=== PATIENT | male | born 1980 | race Caucasian/White ===

== ENCOUNTER → 2020-03-08 10:05 | Outpatient (BNVA) | payer OTHER, SELFPAY | PROVIDERS: Visit Provider Urology | DX: Z76.89 Persons encountering health services in other specified circumstances (principal) ==

== ENCOUNTER → 2021-06-07 08:55 | Outpatient (BNVA) | payer OTHER, SELFPAY | PROVIDERS: Visit Provider Urology ==

== ENCOUNTER 2023-03-03 08:53 | Outpatient (AMB) | payer OTHER, SELFPAY ==
--- NOTE | 2023-03-03 09:12 | MHC.OFFVIS ---
Intake Intake Visit Reasons: 6m/labs(set) Intake Note: Patient is Present for Follow Up LABS Urology Medication: Testosterone Antibiotic Allergies:None Blood Thinners: None [facility]acy[facility] Allergies No Known Allergies Allergy (Verified 03/03/23 09:17) Medication List - Last Reconciled 03/03/23 by Waldo Lance MD ciprofloxacin-dexamethasone 0.3-0.1 % 4 drps otic (ears) BID infliximab 0 mg IV lisinopril 5 mg PO DAILY losartan 25 mg PO DAILY needle (disp) 18 G weekly syringe with needle, safety (BD Integra Syringe) weekly testosterone cypionate 100 mg (0.5 mL) IM QWEEK 28 days HPI HPI Comments History of Present Illness Details Judson is a very pleasant male. He is a patient of Dr. Villanueva. 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 Labs - 05/21 T 406, 04/22 930 48 1.6 Continue to follow every 6 months [facility] Surgical History History of hernia repair Review of Systems Const Denies chills and Denies fever(s) Card Reports no additional complaints and Denies syncope Resp Denies cough GI Denies abdominal pain and Denies heartburn Reports as per HPI and Denies change in libido Neuro Denies syncope Psych Denies change in libido Endo Denies change in libido Physical Exam Const General: cooperative, healthy appearing, comfortable and no acute distress Orientation/consciousness: patient oriented x3 HEENT Face and sinus: Yes normal facial exam Mouth: moist mucous membranes Neck Neck: Yes normal visual inspection, Yes full ROM and Yes trachea midline Chest Chest palpation & inspection: normal inspection of the chest Resp Effort & Inspection: normal respiratory effort, able to speak in complete sentences and no respiratory distress GI Inspection: Yes normal to inspection Back/Spine/Pelvis Cervical Spine: normal cervical lordosis Thoracic/Lumbar Spine: thoracic and lumbar spine normal to inspection Skin General skin exam: no rashes or lesions noted Neuro General: patient oriented x3, gait normal, tone normal and moves all extremities Extrem General: Yes normal to inspection and Yes capillary refill normal Assessment & Plan Assessment & Plan (1) Hypogonadism male: Code(s): E29.1 - Testicular hypofunction Plan Six month follow-up Medications: Refilled testosterone cypionate 100 mg (0.5 mL) IM QWEEK 2 mL 5RF 28 days E29.1 - Testicular hypofunction needle (disp) 18 G weekly 50 ea 0RF E29.1 - Testicular hypofunction syringe with needle, safety (BD Integra Syringe) weekly 100 ea 0RF Patient Instructions: Imaging studies, laboratory and physical exam results were discussed and reviewed in detail. No major barriers to patient understanding were identified. An opportunity to ask questions regarding the treatment plan was provided. All questions were answered. The patient expressed understanding and agreement with the above treatment plan. The patient is aware they should contact our office by phone for worsening of their current condition or the appearance of new urologic symptoms. Compliance is encouraged with any medications and followup testing that is ordered. It is a privilege to participate in the urologic care of your patient. If you have any questions or concerns regarding treatment for the above conditions, or other urologic issues, please do not hesitate to contact me. The office telephone contact is [phone]. This note is constructed using voice recognition software. While every effort has been made to ensure accuracy mica laminating machine feeder errors may have been included. Yours sincerely, Dr Waldo Lance MD, [facility] - Urology Providers of Expert, Compassionate Care for the Genitourinary System Coding Level of Care Code Est Pt Level 4 (57271) Diagnoses Hypogonadism male E29.1
== END 2023-03-03 10:09 | disposition home or self-care (01) ==
PROVIDERS: Visit Provider Urology
DX: E29.1 Testicular hypofunction (principal)
CPT/HCPCS: 99213

== ENCOUNTER → 2023-03-03 08:53 | Outpatient (BNVA) | payer OTHER, SELFPAY | PROVIDERS: Visit Provider Urology ==

== ENCOUNTER 2023-09-03 11:49 | Outpatient (AMB) | payer OTHER, SELFPAY ==
--- NOTE | 2023-09-03 11:50 | A.OFFVIS_ITS ---
Intake Intake Visit Reasons: 6m/labs(set)Vm to confirm Intake Note: Patient presents today for a telehealth follow up on: labs Meds- Testosterone cypionate Allergies to Antibiotic- No Known Allergies Blood Thinner- None Torch Operator Required: No Allergies No Known Allergies Allergy (Verified 09/03/23 11:52) HPI HPI Comments History of Present Illness Details Judson is a very pleasant male. He is a patient of Dr. Arevalo. 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 Labs - 05/21 T 406, 04/22 930 48 1.6, 08/22 58 0 1.4 Continue to follow every 6 months [facility] Surgical History History of hernia repair Review of Systems Const All systems reviewed & are unremarkable except as noted in HPI and below Reports no additional complaints Resp Reports no additional complaints GI Reports no additional complaints Reports as per HPI Musc Reports no additional complaints Physical Exam Telemedicine evaluation Appropriate responses Regular breathing rate and rhythm HEENT Head: Yes normal to inspection Ears: hearing grossly normal bilaterally Eyes General: appearance normal, both eyes and all related structures Neck Neck: Yes normal visual inspection Chest Chest palpation & inspection: normal inspection of the chest Resp Effort & Inspection: normal respiratory effort and able to speak in complete sentences Assessment & Plan Assessment & Plan (1) Hypogonadism male: Code(s): E29.1 - Testicular hypofunction (2) Prostatitis: Code(s): N41.9 - Inflammatory disease of prostate, unspecified Plan Six-month follow-up labs, office Orders: Orders Prostate Specific Antigen 6 Months E29.1 - Testicular hypofunction Testosterone, Total 6 Months E29.1 - Testicular hypofunction Complete Blood Count no Diff 6 Months E29.1 - Testicular hypofunction Medications: New sulfamethoxazole-trimethoprim 800-160 mg (Bactrim DS) 1 tab PO BID 14 days 28 tabs 1RF N39.0 - Urinary tract infection, site not specified, N41.9 - Inflammatory disease of prostate, unspecified Refilled testosterone cypionate Please dispose of excess medication after single use 100 mg (0.5 mL) IM QWEEK 28 days 4 mL 5RF E29.1 - Testicular hypofunction Patient Instructions: Imaging studies, laboratory and physical exam results were discussed and reviewed in detail. No major barriers to patient understanding were identified. An opportunity to ask questions regarding the treatment plan was provided. All questions were answered. The patient expressed understanding and agreement with the above treatment plan. The patient is aware they should contact our office by phone for worsening of their current condition or the appearance of new urologic symptoms. Compliance is encouraged with any medications and followup testing that is ordered. It is a privilege to participate in the urologic care of your patient. If you have any questions or concerns regarding treatment for the above conditions, or other urologic issues, please do not hesitate to contact me. The office telephone contact is [phone]. This note is constructed using voice recognition software. While every effort has been made to ensure accuracy chief compressor station engineer errors may have been included. Yours sincerely, Dr Waldo Lance MD, [facility] - Urology Providers of Expert, Compassionate Care for the Genitourinary System Telehealth Telehealth Location of provider rendering services: practice address Location of patient: address on file Patient Identification confirmed using: Name, : Yes Telehealth method: video Patient verbally consented to treatment: Yes Patient verbally consented to billing insurance company: Yes Patient informed of any privacy concerns related to visit: Yes Coding Level of Care Code Tele Est Pt Level 3 (71665) Diagnoses Hypogonadism male E29.1 Prostatitis N41.9
== END 2023-09-03 12:42 | disposition home or self-care (01) ==
LOC: HO.HUSH 11:49
PROVIDERS: PCP Internal Medicine; Visit Provider Urology
DX: E29.1 Testicular hypofunction (principal); N41.9 Inflammatory disease of prostate, unspecified
CPT/HCPCS: 99213

== ENCOUNTER → 2023-09-03 11:49 | Outpatient (BNVA) | payer OTHER, SELFPAY | PROVIDERS: PCP Internal Medicine; Visit Provider Urology ==

== ENCOUNTER 2023-10-15 09:44 | Outpatient (REF) | payer OTHER, SELFPAY ==
--- NOTE | ~2023-10-15 | XR_ITS ---
EXAMINATION: XR ABDOMEN KUB CLINICAL INDICATION: Personal history of urinary calculi COMPARISON: None available. TECHNIQUE: AP view of the abdomen. FINDINGS: The bowel gas pattern is normal with no evidence of ileus or obstruction. The right kidney significantly obscured by overlying bowel gas and stool. The left kidney is partially obscured by overlying bowel gas and stool. No renal calculi are identified. There are 2 small calcifications in the left side of the pelvis which most likely represent phleboliths, less likely ureteral calculi. Surgical coils project over the pelvis. No acute osseous abnormality. XR/XR KUB IMPRESSION: 1. No obstruction. 2. No renal calculi are identified. 3. There are 2 small calcifications in the left side of the pelvis which most likely represent phleboliths, less likely ureteral calculi.
== END 2023-10-15 09:45 | disposition home or self-care (01) ==
LOC: HO.XRAY 09:44
PROVIDERS: PCP Internal Medicine; Visit Provider Urology
DX: Z87.442 Personal history of urinary calculi (principal)
CPT/HCPCS: 74018

== ENCOUNTER 2023-11-11 09:12 | Outpatient (AMB) | payer OTHER, SELFPAY ==
--- NOTE | 2023-11-11 09:29 | A.OFFVIS_ITS ---
Intake Visit Reasons: microgen prostatitis Intake Note: Patient is present for Microgen testing for Chronic Prostatitis Patient states that his symptoms are worse and no medications has helped Allergies No Known Allergies Allergy (Verified 09/03/23 11:52) HPI Comments Details: Judson is a very pleasant male. He is a patient of Dr. Arevalo. 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 Labs - 05/21 T 406, 04/22 930 48 1.6, 08/22 580 1.4 Continue to follow every 6 months [facility] Surgical History History of hernia repair Review of Systems Const Denies chills and Denies fever(s) Card Reports no additional complaints and Denies syncope Resp Denies cough GI Denies abdominal pain and Denies heartburn Reports as per HPI and Denies change in libido Neuro Denies syncope Psych Denies change in libido Endo Denies change in libido Physical Exam Const General: cooperative, healthy appearing, comfortable and no acute distress Orientation/consciousness: patient oriented x3 HEENT Face and sinus: Yes normal facial exam Mouth: moist mucous membranes Neck Neck: Yes normal visual inspection, Yes full ROM and Yes trachea midline Chest Chest palpation & inspection: normal inspection of the chest Resp Effort & Inspection: normal respiratory effort, able to speak in complete sentences and no respiratory distress GI Inspection: Yes normal to inspection Back/Spine/Pelvis Cervical Spine: normal cervical lordosis Thoracic/Lumbar Spine: thoracic and lumbar spine normal to inspection Skin General skin exam: no rashes or lesions noted Neuro General: patient oriented x3, gait normal, tone normal and moves all extremities Extrem General: Yes normal to inspection and Yes capillary refill normal Office Procedures Office Procedure Office Procedure Documentation Office Procedure Documentation: Office procedure - Rectus Insertion Injection The left inguinal ring was palpated with the left hand. Pain was elicited on medial aspect of the inguinal ring at the insertion of the rectus tendon into the symphysis pubis. Alcohol prep was applied. A 22 gauge 3.5 in Chiba needle was advanced and under tactile guidance the tip was placed through rectus tendon insertion. Negative aspiration was performed. A fan-like distribution for injection of a total of 10 cc was made. The injection consisted of 5 cc of 0.5% bupivacaine, 5 cc of 1% lidocaine, and 40 mg Kenalog. The injection was well tolerated with only transient pain. CPT 47429 ICD M77.8 Enthesopathy Assessment & Plan Assessment & Plan (1) Prostatitis: Code(s): N41.9 - Inflammatory disease of prostate, unspecified Category: Medical (2) Hypogonadism male: Code(s): E29.1 - Testicular hypofunction Category: Medical (3) Deep inguinal pain: Code(s): R10.30 - Lower abdominal pain, unspecified Category: Medical Plan keep followup Patient Instructions: Imaging studies, laboratory and physical exam results were discussed and reviewed in detail. No major barriers to patient understanding were identified. An opportunity to ask questions regarding the treatment plan was provided. All questions were answered. The patient expressed understanding and agreement with the above treatment plan. The patient is aware they should contact our office by phone for worsening of their current condition or the appearance of new urologic symptoms. Compliance is encouraged with any medications and followup testing that is ordered. It is a privilege to participate in the urologic care of your patient. If you have any questions or concerns regarding treatment for the above conditions, or other urologic issues, please do not hesitate to contact me. The office telephone contact is [phone]. This note is constructed using voice recognition software. While every effort has been made to ensure accuracy inspector open die errors may have been included. Yours sincerely, Dr Waldo Lance MD, [facility] - Urology Providers of Expert, Compassionate Care for the Genitourinary System Coding Level of Care Code Est Pt Level 3 (37828) Diagnoses Prostatitis N41.9 Hypogonadism male E29.1 Deep inguinal pain R10.30
== END 2023-11-11 10:09 | disposition home or self-care (01) ==
PROVIDERS: PCP Internal Medicine; Visit Provider Urology
DX: N41.9 Inflammatory disease of prostate, unspecified (principal); E29.1 Testicular hypofunction; R10.30 Lower abdominal pain, unspecified
CPT/HCPCS: 99213

== ENCOUNTER → 2023-11-11 09:12 | Outpatient (BNVA) | payer OTHER, SELFPAY | PROVIDERS: PCP Internal Medicine; Visit Provider Urology ==

== ENCOUNTER 2024-03-03 08:58 | Outpatient (AMB) | payer OTHER, SELFPAY ==
--- NOTE | 2024-03-03 08:56 | A.OFFVIS_ITS ---
Intake Visit Reasons: 6M Follow Up-psa/cbc/tESTO(set) Intake Note: Patient presents today for a telehealth 6M follow up/PSA/CBC/TESTO Meds- Testosterone cypionate Allergies to Antibiotic- No Known Allergies Blood Thinner- None Chiller Operator Required: No Allergies No Known Allergies Allergy (Verified 03/03/24 08:57) HPI Comments Details: Judson is a very pleasant male. He is a patient of Dr. Arevalo. 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 Labs - 05/21 T 406, 04/22 930 48 1.6, 08/22 580 1.4, 02/22 T 1500 1.6 Continue to follow every 6 months [facility] Surgical History History of hernia repair Review of Systems Const All systems reviewed & are unremarkable except as noted in HPI and below Reports no additional complaints Resp Reports no additional complaints GI Reports no additional complaints Reports as per HPI Musc Reports no additional complaints Physical Exam Telemedicine evaluation Appropriate responses Regular breathing rate and rhythm HEENT Head: Yes normal to inspection Ears: hearing grossly normal bilaterally Eyes General: appearance normal, both eyes and all related structures Neck Neck: Yes normal visual inspection Chest Chest palpation & inspection: normal inspection of the chest Resp Effort & Inspection: normal respiratory effort and able to speak in complete sentences Telehealth Telehealth Location of provider rendering services: practice address Location of patient: address on file Patient Identification confirmed using: Name, : Yes Telehealth method: voice only Patient verbally consented to treatment: Yes Patient verbally consented to billing insurance company: Yes Patient informed of any privacy concerns related to visit: Yes Assessment & Plan Assessment & Plan (1) Prostatitis: Code(s): N41.9 - Inflammatory disease of prostate, unspecified Category: Medical (2) Hypogonadism male: Code(s): E29.1 - Testicular hypofunction Category: Medical Plan Three-month follow-up Orders: Orders Testosterone, Total 3 Months E29.1 - Testicular hypofunction Medications: Refilled testosterone cypionate Please dispose of excess medication after single use 100 mg (0.5 mL) IM QWEEK 28 days 4 mL 5RF E29.1 - Testicular hypofunction Patient Instructions: Imaging studies, laboratory and physical exam results were discussed and reviewed in detail. No major barriers to patient understanding were identified. An opportunity to ask questions regarding the treatment plan was provided. All questions were answered. The patient expressed understanding and agreement with the above treatment plan. The patient is aware they should contact our office by phone for worsening of their current condition or the appearance of new urologic symptoms. Compliance is encouraged with any medications and followup testing that is ordered. It is a privilege to participate in the urologic care of your patient. If you have any questions or concerns regarding treatment for the above conditions, or other urologic issues, please do not hesitate to contact me. The office telephone contact is [phone]. This note is constructed using voice recognition software. While every effort has been made to ensure accuracy distributor cleaner errors may have been included. Yours sincerely, Dr Waldo Lance MD, [facility] - Urology Providers of Expert, Compassionate Care for the Genitourinary System Coding Level of Care Code Tele Est Pt Level 3 (98572) Diagnoses Prostatitis N41.9 Hypogonadism male E29.1
== END 2024-03-03 09:28 | disposition home or self-care (01) ==
LOC: HO.HUSH 08:58
PROVIDERS: PCP Internal Medicine; Visit Provider Urology
DX: N41.9 Inflammatory disease of prostate, unspecified (principal); E29.1 Testicular hypofunction
CPT/HCPCS: 99213

== ENCOUNTER → 2024-03-03 08:58 | Outpatient (BNVA) | payer OTHER, SELFPAY | PROVIDERS: PCP Internal Medicine; Visit Provider Urology ==

== ENCOUNTER 2024-06-09 08:49 | Outpatient (AMB) | payer OTHER, SELFPAY ==
--- NOTE | 2024-06-09 08:49 | A.OFFVIS_ITS ---
Intake Visit Reasons: 3m/Testo(set) Intake Note: Patient is present for 3M/TESTO Urology Medication:TESTOSTERONE Antibiotic Allergy:NONE Blood Thinner:NONE Inspector Watch Parts Required: No Allergies No Known Allergies Allergy (Verified 06/09/24 08:50) HPI Comments Details: Judson is a very pleasant male. He is a patient of Dr. Arevalo. 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 Labs - 05/21 T 406, 04/22 930 48 1.6, 08/22 580 1.4, 02/22 T 1500 1.6, 05/24 T 756 Continue to follow every 6 months [facility] Surgical History History of hernia repair Review of Systems Const All systems reviewed & are unremarkable except as noted in HPI and below Reports no additional complaints Resp Reports no additional complaints GI Reports no additional complaints Reports as per HPI Musc Reports no additional complaints Physical Exam Telemedicine evaluation Appropriate responses Regular breathing rate and rhythm HEENT Head: Yes normal to inspection Ears: hearing grossly normal bilaterally Eyes General: appearance normal, both eyes and all related structures Neck Neck: Yes normal visual inspection Chest Chest palpation & inspection: normal inspection of the chest Resp Effort & Inspection: normal respiratory effort and able to speak in complete sentences Telehealth Telehealth Telehealth Platform: [employer] Location of provider rendering services: practice address Location of patient: address on file Patient Identification confirmed using: Name, : Yes Telehealth method: video Patient verbally consented to treatment: Yes Patient verbally consented to billing insurance company: Yes Patient informed of any privacy concerns related to visit: Yes Minutes spent on Phone/Video with Pt.: 15 Assessment & Plan Assessment & Plan (1) Hypogonadism male: Code(s): E29.1 - Testicular hypofunction Category: Medical Plan Six-month follow-up lab work Orders: Orders Testosterone, Total 6 Months E29.1 - Testicular hypofunction Complete Blood Count no Diff 6 Months E29.1 - Testicular hypofunction Prostate Specific Antigen 6 Months E29.1 - Testicular hypofunction Medications: Refilled testosterone cypionate Please dispose of excess medication after single use 100 mg (0.5 mL) IM QWEEK 28 days 4 mL 5RF E29.1 - Testicular hypofunction Patient Instructions: Imaging studies, laboratory and physical exam results were discussed and reviewed in detail. No major barriers to patient understanding were identified. An opportunity to ask questions regarding the treatment plan was provided. All questions were answered. The patient expressed understanding and agreement with the above treatment plan. The patient is aware they should contact our office by phone for worsening of their current condition or the appearance of new urologic symptoms. Compliance is encouraged with any medications and followup testing that is ordered. It is a privilege to participate in the urologic care of your patient. If you have any questions or concerns regarding treatment for the above conditions, or other urologic issues, please do not hesitate to contact me. The office telephone contact is [phone]. This note is constructed using voice recognition software. While every effort has been made to ensure accuracy storm chaser errors may have been included. Yours sincerely, Dr Waldo Lance MD, [facility] - Urology Providers of Expert, Compassionate Care for the Genitourinary System Coding Level of Care Code Tele Est Pt Level 3 (09635) Diagnoses Hypogonadism male E29.1
--- OUTSIDE RECORDS SUMMARY | 2024-06-09 09:03 | XMS_ITS ---
Author Organization [facility] Address [address] [place] [address] Care Team Providers Care Television Picture Tube Rebuilder Name Role Phone ROBIN LEBRON Unavailable [phone] REASON FOR VISIT urgent Encounters Encounter Location Date Provider Diagnosis [facility] [address] [facility] [address] [facility] [address] [place] [address] 06/02/2024 ROBIN LEBRON PLAN OF TREATMENT Next Appt Details Provider Name:ROBIN LEBRON, 0 07/14/2024 01:00:00 PM, [address], [place], [address], Progress Notes * FRED STEWARTOB:[birth year] (43 yo M)Acc No.[id number]:06/02/2024 Patient:??YAMILETH STEWART :1980?Age:43 Y?Sex:Beena garcia Address:[facility] [place] [address] * true * Date:??
--- OUTSIDE RECORDS SUMMARY | 2024-06-09 09:03 | XMS_ITS ---
Author Organization [facility] Address [address] [place] [address] Care Team Providers Care Exhibition Specialist Name Role Phone ROBIN LEBRON Unavailable [phone] LEXII SOFIA Unavailable [phone] REASON FOR VISIT CXR Results Encounters Encounter Location Date Provider Diagnosis [facility] [address] [place] [address] 06/03/2024 LEXII SOFIA PLAN OF TREATMENT Next Appt Details Provider Name:ROBIN LEBRON, 0 07/14/2024 01:00:00 PM, [address], [place], [address], Progress Notes * FRED STEWARTOB:[birth year] (43 yo M)Acc No.[id number]:06/03/2024 Patient:??YAMILETH STEWART :1980?Age:43 Y?Sex:Beena garcia Address:[place] [address] * true * Date:??
--- OUTSIDE RECORDS SUMMARY | 2024-06-09 09:03 | XMS_ITS | Patient Health Record ---
Author Organization [facility] Address [address] [place] [address] Care Team Providers Care Sheet Combining Operator Name Role Phone ROBIN LEBRON Unavailable [phone] MANINDEROREN Sood Unavailable [phone] BISMARK LEXII Unavailable [phone] ALLERGIES No Known Allergies RESULTS Component Value Reference Range Notes Legionella pneumophila Abs.- [id number] Reviewed date:06/07/2024 08:09:31 AM Interpretation: Performing Lab:[facility], [address] [facility], Phone - [phone], Director - MDAnnelisedry Notes/Report: Legionella pneumophila Abs. Non Reactive Non Reactive This is a qualitative assay that detects total antibodies (IgG/IgM/IgA) to L. pneumophila Groups 1-6 by EIA method. This assay cannot differentiate between previous exposure/infection and current infection. Serological testing is not recommended for diagnosis. Per current recommendations, culture of lower respiratory secretions and/or the Legionella urinary antigen test should be used for diagnosis of infection with Legionella. CBC With Differential/Platel et-[id number] Reviewed date:06/07/2024 08:08:21 AM Interpretation: Performing Lab:[facility], [address] [facility], [place], Phone - [phone], Director - MDJodry Notes/Report: WBC 7.0 3.4-10.8 x10E3/uL RBC 5.16 4.14-5.80 x10E6/uL Hemoglobin 16.3 13.0-17.7 g/dL Hematocrit 48.5 37.5-51.0 % MCV 94 79-97 fL MCH 31.6 26.6-33.0 pg MCHC 33.6 31.5-35.7 g/dL RDW 12.0 11.6-15.4 % Platelets 210 150-450 x10E3/uL Neutrophils 42 Not Estab. % Lymphs 45 Not Estab. % Monocytes 10 Not Estab. % Eos 2 Not Estab. % Basos 1 Not Estab. % Immature Cells Neutrophils (Absolute) 2.9 1.4-7.0 x10E3/uL Lymphs (Absolute) 3.2 0.7-3.1 x10E3/uL Monocytes(Absolute) 0.7 0.1-0.9 x10E3/uL Eos (Absolute) 0.2 0.0-0.4 x10E3/uL Baso (Absolute) 0.1 0.0-0.2 x10E3/uL Immature Granulocytes 0 Not Estab. % Immature Grans (Abs) 0.0 0.0-0.1 x10E3/uL NRBC Hematology Comments: Mycoplasma pneu. IgG/IgM Abs -[id number] Reviewed date:06/07/2024 10:02:50 AM Interpretation: Performing Lab:[facility], [address] [place] [address], [place], Phone - [phone], Director - Josh Notes/Report: M pneumoniae IgG Abs <100 0-99 U/mL Negative: <100 Indeterminate: 100 - 320 Positive: >320 The reference interval established is intended as a baseline only. Values >100 may indicate a recent infection with Mycoplasma pneumoniae and need to be confirmed either by a positive IgM result and/or an additional specimen drawn 2-4 weeks later showing a significant increase in antibody levels. M pneumoniae IgM Abs <770 0-769 U/mL Negative <770 Clinically significant amount of M. pneumoniae antibody not detected. Low Positive 770 - 950 M. pneumoniae specific IgM presumptively detected. It is recommended that another sample be collected 1-2 weeks later to assure reactivity. Positive >950 Highly significant amount of M. pneumoniae specific IgM antibody detected. REASON FOR REFERRAL No Information MEDICATIONS Medication SIG (Take, Route, Frequency, Duration) Notes Start Date End Date Status Benzonatate 200 MG 1 capsule Orally Thr ee times a day PRN cough for 10 days Active Remicade 100 MG Intravenous for 42 Days Active guaiFENesin-Codeine 200-20 MG/10ML 10 mL as needed Orally every 6 hrs for 5 days Active Testosterone Cypionate 100 MG/ML 1 mL Intramuscular Active Doxycycline Hyclate 100 MG 1 capsule Ora lly twice a day for 10 days Active Cyclobenzaprine HCl 5 MG TAKE 1 TABLET B Y MOUTH EVERY DAY AT BEDTIME NEEDED FOR 30 DAYS for 30 Active Losartan Potassium 25 MG 1 tablet Orally Once a day for 90 days Active Albuterol Sulfate HFA 108 (90 Base) MCG/ACT 2 puff Inhalation every 6 hrs for 30 days 06/03/2024 Active Multi For Him - as directed Orally Active SOCIAL HISTORY Tobacco Use: Social History Observation Description Date Details (start date - stop date) Never Smoker NA - NA Sex Assigned At : Social History Observation Description Sex Assigned At Unknown Tobacco Use/Smoking Question Answer Notes 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 drinks tob: denies drug: denies 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 alcohol: weekly 3 drinks tob: denies drug: denies 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 alcohol: weekly 3 drinks tob: denies drug: denies 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 alcohol: weekly 3 drinks tob: denies drug: denies 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 alcohol: weekly 3 drinks tob: denies drug: denies 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 alcohol: weekly 3 drinks tob: denies drug: denies exercise: regular cardio PROBLEMS Problem Type ICD Code Onset Dates Problem Status W/U Status Risk SNOMED Code Notes Problem Pneumonia, unspecified organism (J18.9) Active confirmed Pneumonia (315786812) Problem Encounter for screening for diabetes mellitus (Z13.1) Active confirmed 926006257 Problem Annual physical exam (Z00.00) Active confirmed 771280100 Problem Hypogonadism in male (E29.1) Active confirmed 71163081 Problem Hypertension, unspecified type (I10) Active confirmed 69392771 Problem Cough (R05.9) Active confirmed Cough (15216183) Problem Ankylosing spondylitis, unspecified site of spine (M45.9) Active confirmed 4304694 Problem Cough, unspecified type (R05.9) Active confirmed 85795494 Problem Lipid screening (Z13.220) Active confirmed 192858936 VITAL SIGNS Heart Rate 69 /min 06/03/2024 Oximetry 97 % 06/03/2024 Blood pressure diastolic 84 mm Hg 06/03/2024 Height 70 in 06/03/2024 Blood pressure systolic 128 mm Hg 06/03/2024 Weight 197.2 lbs 06/03/2024 BMI 28.29 kg/m2 06/03/2024 Encounters Encounter Location Date Provider Diagnosis [facility] [address] [facility] [place] [address] 10/19/2023 ROBIN VI [facility] [address] [facility] [place] [address] 05/03/2024 ROBIN VI [facility] [address] [place] [address] 08/22/2023 OREN SHAQUILLE Sore throat J02.9 an d URI, acute J06.9 [facility] [address] [place] [address], [place] [address] 03/16/2024 ROBIN VI URI, acute J06.9 ; Postnasal drip R09.82 and Sinus congestion R09.81 [facility] [address] [address] 06/03/2024 LEXII SOFIA URI, acute J06.9 ; Postnasal drip R09.82 and Sinus congestion R09.81 [facility] [address] [place] [address] 08/19/[address] [place] [address] 03/15/2024 ROBIN VI [address] [place] [address] 03/16/[address] [place] [place] [address] 06/02/2024 ROBIN VI [facility] [address] [place] [address] 06/03/2024 LEXII SOFIA ASSESSMENTS Encounter Date Diagnosis Assessment Notes Treatment Notes Treatment Clinical Notes Section Notes 08/22/2023 Sore throat (ICD-10 - J02.9) Given duration of the illness as well as history of immunosuppression, we will treat empirically Will shy away from steroids given immunosuppression Antibiotic stewardship is the effort to measure and improve how antibiotics are prescribed by clinicians and used by patients. Improving antibiotic prescribing and use is critical to effectively treat infections via evidenced based practice, protect patients from harms caused by unnecessary antibiotic use, and combat antibiotic resistance. What is an example of antibiotic stewardship? That includes prescribing antibiotics only when they are needed (i.e., for bacterial infections, not viral ones), prescribing the appropriate antibiotics for the diagnosed infection, and prescribing the right dose and duration of antibiotic treatment, among other things. 08/22/2023 URI, acute (ICD-10 - J06.9) Given duration of the illness as well as history of immunosuppression, we will treat empirically Will shy away from steroids given immunosuppression Antibiotic stewardship is the effort to measure and improve how antibiotics are prescribed by clinicians and used by patients. Improving antibiotic prescribing and use is critical to effectively treat infections via evidenced based practice, protect patients from harms caused by unnecessary antibiotic use, and combat antibiotic resistance. What is an example of antibiotic stewardship? That includes prescribing antibiotics only when they are needed (i.e., for bacterial infections, not viral ones), prescribing the appropriate antibiotics for the diagnosed infection, and prescribing the right dose and duration of antibiotic treatment, among other things. 03/16/2024 Postnasal drip (ICD-10 - R09.82) Pleasant 43-year-old male who presents the office for an urgent care visit with a cough x 4 weeks, sinus congestion, postnasal drip, worse at night. COVID, flu, RSV pending but did test negative for COVID, flu, RSV at urgent care 3 weeks ago. Has been using Delsym, lozenges, and Flonase without improvement. In July 2023, patient states he presented similarly and was treated with doxycycline, and Tessalon Perles and he states the doxycycline worked better than the azithromycin which she has taken in the past with his previous PCP. Based on the length of symptoms, will order chest x-ray, treat with doxycycline, Tessalon Perles, and guanfacine with codeine cough syrup at night as needed. Discussed proper use and side effects of all these medications. Discussed emergency department criteria/criteria to call the office. If symptoms persist, could consider getting blood work including CBC, CMP, strep pneumonia, mycoplasma, and Legionella antibodies. Patient understanding. Due for physical, will follow-up end of April/beginning of May with fasting blood work. All quetsions answered to patients satisfaction. Patient verbalized understanding of diagnosis and treatments explained. To call sooner prior to next visit it any questions/concerns arise. Case discussed with collaborating physician Cooper Arevalo who reviewed the assessment and plan. Chart, medications, labs, vital signs reviewed. Dictation was accomplished with the use of [employer] voice recognition software, prone to medical misidentifications and grammatical errors. This is unintentional and the practitioner does try to identify and correct these, but some could still be present. Please do not hesitate to contact practitioner for clarification. 03/16/2024 URI, acute (ICD-10 - J06.9) Pleasant 43-year-old male who presents the office for an urgent care visit with a cough x 4 weeks, sinus congestion, postnasal drip, worse at night. COVID, flu, RSV pending but did test negative for COVID, flu, RSV at urgent care 3 weeks ago. Has been using Delsym, lozenges, and Flonase without improvement. In July 2023, patient states he presented similarly and was treated with doxycycline, and Tessalon Perles and he states the doxycycline worked better than the azithromycin which she has taken in the past with his previous PCP. Based on the length of symptoms, will order chest x-ray, treat with doxycycline, Tessalon Perles, and guanfacine with codeine cough syrup at night as needed. Discussed proper use and side effects of all these medications. Discussed emergency department criteria/criteria to call the office. If symptoms persist, could consider getting blood work including CBC, CMP, strep pneumonia, mycoplasma, and Legionella antibodies. Patient understanding. Due for physical, will follow-up end of April/beginning of May with fasting blood work. All quetsions answered to patients satisfaction. Patient verbalized understanding of diagnosis and treatments explained. To call sooner prior to next visit it any questions/concerns arise. Case discussed with collaborating physician Cooper Arevalo who reviewed the assessment and plan. Chart, medications, labs, vital signs reviewed. Dictation was accomplished with the use of [employer] voice recognition software, prone to medical misidentifications and grammatical errors. This is unintentional and the practitioner does try to identify and correct these, but some could still be present. Please do not hesitate to contact practitioner for clarification. 06/03/2024 Postnasal drip (ICD-10 - R09.82) Pleasant 43-year-old male who presents the office for an urgent care visit with a cough x 2 weeks, sinus congestion, postnasal drip, worse at night. COVID, flu, RSV pending but did test negative for COVID, flu, RSV at urgent care 3 days ago ago. Has been using Delsym, lozenges, and Flonase without improvement. In July 2023, patient states he presented similarly and was treated with doxycycline, and Tessalon Perles and he states the doxycycline worked better than the azithromycin which she has taken in the past with his previous PCP. Based on the length of symptoms, will order chest x-ray. CHeck Mycoplsama antibodies. Tessalon Perles, and guanfacine with codeine cough syrup at night as needed. Discussed proper use and side effects of all these medications. Discussed emergency department criteria/criteria to call the office. If symptoms persist, could consider getting blood work including CBC, CMP, strep pneumonia, mycoplasma, and Legionella antibodies. Patient understanding. Due for physical, will follow-up end of April/beginning of May with fasting blood work. All quetsions answered to patients satisfaction. Patient verbalized understanding of diagnosis and treatments explained. To call sooner prior to next visit it any questions/concerns arise. Case discussed with collaborating physician Cooper Arevalo who reviewed the assessment and plan. Chart, medications, labs, vital signs reviewed. Dictation was accomplished with the use of [employer] voice recognition software, prone to medical misidentifications and grammatical errors. This is unintentional and the practitioner does try to identify and correct these, but some could still be present. Please do not hesitate to contact practitioner for clarification. 06/03/2024 URI, acute (ICD-10 - J06.9) Pleasant 43-year-old male who presents the office for an urgent care visit with a cough x 2 weeks, sinus congestion, postnasal drip, worse at night. COVID, flu, RSV pending but did test negative for COVID, flu, RSV at urgent care 3 days ago ago. Has been using Delsym, lozenges, and Flonase without improvement. In July 2023, patient states he presented similarly and was treated with doxycycline, and Tessalon Perles and he states the doxycycline worked better than the azithromycin which she has taken in the past with his previous PCP. Based on the length of symptoms, will order chest x-ray. CHeck Mycoplsama antibodies. Tessalon Perles, and guanfacine with codeine cough syrup at night as needed. Discussed proper use and side effects of all these medications. Discussed emergency department criteria/criteria to call the office. If symptoms persist, could consider getting blood work including CBC, CMP, strep pneumonia, mycoplasma, and Legionella antibodies. Patient understanding. Due for physical, will follow-up end of April/may with fasting blood work. All quetsions answered to patients satisfaction. Patient verbalized understanding of diagnosis and treatments explained. To call sooner prior to next visit it any questions/concerns arise. Case discussed with collaborating physician Cooper Arevalo who reviewed the assessment and plan. Chart, medications, labs, vital signs reviewed. Dictation was accomplished with the use of [employer] voice recognition software, prone to medical misidentifications and grammatical errors. This is unintentional and the practitioner does try to identify and correct these, but some could still be present. Please do not hesitate to contact practitioner for clarification. 06/03/2024 Sinus congestion (ICD-10 - R09.81) Pleasant 43-year-old male who presents the office for an urgent care visit with a cough x 2 weeks, sinus congestion, postnasal drip, worse at night. COVID, flu, RSV pending but did test negative for COVID, flu, RSV at urgent care 3 days ago ago. Has been using Delsym, lozenges, and Flonase without improvement. In July 2023, patient states he presented similarly and was treated with doxycycline, and Tessalon Perles and he states the doxycycline worked better than the azithromycin which she has taken in the past with his previous PCP. Based on the length of symptoms, will order chest x-ray. CHeck Mycoplsama antibodies. Tessalon Perles, and guanfacine with codeine cough syrup at night as needed. Discussed proper use and side effects of all these medications. Discussed emergency department criteria/criteria to call the office. If symptoms persist, could consider getting blood work including CBC, CMP, strep pneumonia, mycoplasma, and Legionella antibodies. Patient understanding. Due for physical, will follow-up end of April/may with fasting blood work. All quetsions answered to patients satisfaction. Patient verbalized understanding of diagnosis and treatments explained. To call sooner prior to next visit it any questions/concerns arise. Case discussed with collaborating physician Cooper Arevalo who reviewed the assessment and plan. Chart, medications, labs, vital signs reviewed. Dictation was accomplished with the use of [employer] voice recognition software, prone to medical misidentifications and grammatical errors. This is unintentional and the practitioner does try to identify and correct these, but some could still be present. Please do not hesitate to contact practitioner for clarification. 03/16/2024 Sinus congestion (ICD-10 - R09.81) Pleasant 43-year-old male who presents the office for an urgent care visit with a cough x 4 weeks, sinus congestion, postnasal drip, worse at night. COVID, flu, RSV pending but did test negative for COVID, flu, RSV at urgent care 3 weeks ago. Has been using Delsym, lozenges, and Flonase without improvement. In July 2023, patient states he presented similarly and was treated with doxycycline, and Tessalon Perles and he states the doxycycline worked better than the azithromycin which she has taken in the past with his previous PCP. Based on the length of symptoms, will order chest x-ray, treat with doxycycline, Tessalon Perles, and guanfacine with codeine cough syrup at night as needed. Discussed proper use and side effects of all these medications. Discussed emergency department criteria/criteria to call the office. If symptoms persist, could consider getting blood work including CBC, CMP, strep pneumonia, mycoplasma, and Legionella antibodies. Patient understanding. Due for physical, will follow-up end of April/beginning of May with fasting blood work. All quetsions answered to patients satisfaction. Patient verbalized understanding of diagnosis and treatments explained. To call sooner prior to next visit it any questions/concerns arise. Case discussed with collaborating physician Cooper Arevalo who reviewed the assessment and plan. Chart, medications, labs, vital signs reviewed. Dictation was accomplished with the use of [employer] voice recognition software, prone to medical misidentifications and grammatical errors. This is unintentional and the practitioner does try to identify and correct these, but some could still be present. Please do not hesitate to contact practitioner for clarification. PLAN OF TREATMENT Pending Test Test Name Order Date X ray : Chest with 2 views 06/03/2024 Mycoplasma pneu. IgG/IgM Abs 06/03/2024 XR Chest 2 Views 03/16/2024 LIPID PANEL, STANDARD 03/16/2024 LIPID PANEL, STANDARD 09/12/2022 COMPREHENSIVE METABOLIC PANEL 03/16/2024 COMPREHENSIVE METABOLIC PANEL 09/12/2022 CBC (INCLUDES DIFF/PLT) 09/12/2022 CBC (INCLUDES DIFF/PLT) 03/16/2024 CBC (INCLUDES DIFF/PLT) 06/03/2024 URINALYSIS, COMPLETE 03/16/2024 URINALYSIS, COMPLETE 09/12/2022 HEMOGLOBIN A1c 09/12/2022 HEMOGLOBIN A1c 03/16/2024 TSH 09/12/2022 Next Appt Details Provider Name:ROBIN VI, 0 07/14/2024 01:00:00 PM, [address], [place], [address], Insurance Providers Payer Name Payer Address Payer Phone Subscriber Number Group Number Insured Name Patient Relationship to Insured Coverage Start Date Coverage End Date [employer] [address] [place] [phone] [id number] YAMILETH STEWART Self - patient is the insured 4 MEDICAL (GENERAL) HISTORY Medical History History ICD Code HTN Ankylosing spondylitis hypogonadism Left tennis elbow Surgical History Surgery Date(Month/Year) ACL reconstruction Inguinal hernia
--- OUTSIDE RECORDS SUMMARY | 2024-06-09 09:03 | XMS_ITS ---
Author Organization [facility] Address [address] [place] [address] Care Team Providers Care Logistics Vice President Name Role Phone ROBIN LEBRON Unavailable [phone] BISMARKLEXII Roblero Unavailable [phone] ALLERGIES No Known Allergies RESULTS Component Value Reference Range Notes Legionella pneumophila Abs.- [id number] Reviewed date:06/07/2024 08:09:31 AM Interpretation: Performing Lab:[facility], [address] [place] [address], [place], Phone - [phone], Director - Josh Notes/Report: Legionella pneumophila Abs. Non Reactive Non [...] used for diagnosis of infection with Legionella. REASON FOR VISIT pt is here for urgent visit pt states he has had cough for over 2-3 months was seen here for this back in mar and went to urgent care 05/30 was negative for covid flu and rsv MEDICATIONS Medication SIG (Take, Route, Frequency, Duration) Notes Start Date End Date Status Remicade 100 MG Intravenous for 42 Days Active Testosterone Cypionate 100 MG/ML 1 mL Intramuscular Active Cyclobenzaprine HCl 5 MG TAKE 1 TABLET B Y MOUTH EVERY DAY AT BEDTIME NEEDED FOR 30 DAYS for 30 Active Multi For Him - as directed Orally Active Benzonatate 200 MG 1 capsule Orally Thr ee times a day PRN cough for 10 days Active guaiFENesin-Codeine 200-20 MG/10ML 10 mL as needed Orally every 6 hrs for 5 days Active Losartan Potassium 25 MG 1 tablet Orally Once a day for 90 days Active Doxycycline Hyclate 100 MG 1 capsule Ora lly twice a day for 10 days Active Albuterol Sulfate HFA 108 (90 Base) MCG/ACT 2 puff Inhalation every 6 hrs for 30 days 06/03/2024 Active SOCIAL HISTORY Tobacco Use: Social History Observation Description Date Details (start date - stop date) Never Smoker NA - NA Sex Assigned At : Social History Observation Description Sex Assigned At Unknown Tobacco Use/Smoking Question Answer Notes 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 tob: denies drug: denies exercise: regular cardio VITAL SIGNS Heart Rate 69 /min 06/03/2024 Blood pressure systolic 128 mm Hg 06/03/19 25 Blood pressure diastolic 84 mm Hg 025 Weight 197.2 lbs 06/03/2024 BMI 28.29 kg/m2 06/03/2024 Height 70 in 06/03/2024 Oximetry 97 % 06/03/2024 Encounters Encounter Location Date Provider Diagnosis [facility] [address] [place] [address] 06/03/2024 LEXII SOFIA URI, acute J06.9 ; Postnasal drip R09.82 and Sinus congestion R09.81 ASSESSMENTS Encounter Date Diagnosis Assessment Notes Treatment Notes Treatment Clinical Notes Section Notes 06/03/2024 URI, acute (ICD-10 - J06.9) Pleasant [...] Dictation was accomplished with the use of Racemi voice recognition software, prone to medical misidentifications [...] Dictation was accomplished with the use of Dragon voice recognition software, prone to medical misidentifications [...] Dictation was accomplished with the use of Racemi voice recognition software, prone to medical misidentifications and grammatical errors. This is unintentional and the practitioner does try to identify and correct these, but some could still be present. Please do not hesitate to contact practitioner for clarification. PLAN OF TREATMENT Medication Medication Name Sig Start Date Stop Date Notes Benzonatate 200 MG 1 capsule Orally Thr ee times a day PRN cough for 10 days guaiFENesin-Codeine 200-20 MG/10ML 10 mL as needed Orally every 6 hrs for 5 days Doxycycline Hyclate 100 MG 1 capsule Ora lly twice a day for 10 days Albuterol Sulfate HFA 108 (9 0 Base) MCG/ACT 2 puff Inhalation every 6 hrs for 30 days 06/03/2024 Pending Test Test Name Order Date X ray : Chest with 2 views 06/03/2024 Mycoplasma pneu. IgG/IgM Abs 06/03/2024 CBC (INCLUDES DIFF/PLT) 06/03/2024 Next Appt Details Provider Name:ROBIN LEBRON, Jair 07/14/2024 01:00:00 PM, [address], [place], [address], Progress Notes * SISSY STEWARTJDOB:[birth year] (43 yo M)Acc No.[id number]:06/03/2024 Progress Notes Patient:??YAMILETH STEWART Provider:??LEXII SOFIA PA-C :1980?Age:43 Y?Sex:Ma le Date:06/03/2024 Address:[address] [place], [place] [id number] Subjective: * Chief Complaints: * ?1. Pt is here for urge nt visit pt states he has had cough for over 2-3 months was seen here for this back in mar and went to urgent care 05/30 was negative for covid flu and rsv. * HPI: ?Constitutional:? Patient is a 43-year-old male with a past medical history of ankylosing spondylitis, on Remicade, hypogonadism on testosterone, hypertension who presents today for an urgent visit. Patient reports that he has been having an off-and-on cough over 2 to 3 months. He reports he is chronically around sick people with viral symptoms. Patient reports he was seen back in March for URI-like symptoms, completing antibiotics with improvement of symptomatology. Patient reports that he felt better for 2 to 3 weeks, then got worse again. Patient reports that the cough persisted. Patient denies any fevers or chills. Right before [place], patient got together with his neighbors, and the had a cough. Since then, patient reports that he has been having low-grade subjective fevers, as well as feeling short of breath. He reports that he has chest tightness. Reports that he feels that his hearing is muffled, he tried irrigating his ear without any improvement of his symptomatology. He denies a sore throat. He has not tried anything [id number]. Patient reports significant concern for mycoplasma pneumonia, given the fact that he is on Remicade. He denies any exertional dyspnea. There is no dizziness or lightheadedness. Patient ddenies a history of asthma in the past. * ROS:?Constitutional: Patient denies any excessive fatigue with exercise, no weight loss, + subjective fever, no night sweats, no changes in sleep. ???Eyes: No eye discharge, no itching, no redness, no vision changes. ???Ear nose throat: No ear pain, No sore throat, no postnasal drip, + runny nose, no sneezing, no hearing changes ???Cardiovascular: No chest pain, + dyspnea on exertion, no PND, no orthopnea, no irregular pulse, no palpitations, no claudication, no diaphoresis, no claudication. ???Respiratory: +cough, no hemoptysis, no sputum, no wheezing, no SOB, no pleuritic pain. ???GI, No diarrhea, no constipation, no blood in the stools, no pain associated with eating, no indigestion, no difficulty swallowing, no appetite change. ???Genitourinary: No painful urination, no hesitancy, no blood in the urine, no incontinence, no frequency, no urgency, no abnormal discharge. ???Musculoskeletal: + back pain, + joint pain, no limitations to walking and running, no joint deformity, no joint stiffness, no muscle weakness ???Integumentary: No new skin rash. No new changes in skin moles, no pruritis, no color change. ???Neurological: No history of seizures, no memory loss, no language dysfunction, no inability to concentrate, no localized weakness, no sensation loss, no confusion, no dizziness, no tremor, no numbness, no tingling. ???Psychiatric: no anxiety, no depression, no suicidal thoughts, feels safe at home. ???Endocrine: No polyuria, no polyphagia, no polydipsia. No heat/cold intolerance, no excesss thirst. ???Hematological: No easy bruising or bleeding, no lymph node swelling. * Medical History:??HTN, Ankyl osing spondylitis, Hypogonadism, Left tennis elbow. * Surgical History:??ACL recon struction , Inguinal hernia . * Hospitalization/Major Diagno stic Procedure:??Denies Past Hospitalization. * Family History:??Father: ali ve 70 yrs.??Mother: alive 70 yrs.??1 brother(s) - healthy. 1 daughter(s) - healthy. .?? mom htn dad htn, stroke, DM maternal grandmother: memory concerns no cancer in the family. 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 * Medications:??Taking Losarta n Potassium 25 MG Tablet 1 tablet Orally Once a day , Taking Multi For Him - Tablet as directed Orally , Taking Testosterone Cypionate 100 MG/ML Solution 1 mL Intramuscular , Taking Cyclobenzaprine HCl 5 MG Tablet TAKE 1 TABLET BY MOUTH EVERY DAY AT BEDTIME NEEDED FOR 30 DAYS , Taking Remicade 100 MG Solution Reconstituted Intravenous , Discontinued Doxycycline Hyclate 100 MG Capsule 1 capsule Orally twice a day , Discontinued Benzonatate 200 MG Capsule 1 capsule Orally Three times a day PRN cough , Discontinued guaiFENesin-Codeine 200-20 MG/10ML Solution 10 mL as needed Orally every 6 hrs , Medication List reviewed and reconciled with the patient * Allergies:??N.K.D.A. Objective: * Vitals:??HR:69/min, BP:128/8 4mm Hg, Wt:197.2lbs, BMI:28.29Index, Ht: 70 in, Oxygen sat %:97%. * Physical Examination:?General: Age appropriate male, well appearing, no acute distress, speaking in full sentences without respiratory compromise. ?Skin: Warm, dry and intact. No lesions/rashes/erythema. ?HEENT: Normocephalic/atraumatic. EOMI intact. PERRLA. Vision intact. No pharyngeal erythema. Ear canal without cerumen or discharge. Tympanic membrane visualized including bony structures and cone of light. ?Neck/Thyroid: + cervical lymphadenopathy. Full ROM. Thyroid free of nodules and nonenlarged. ?Lung: Clear to auscultation bilaterally, no wheezes, rales or rhonchi. Tight cough. Equal chest rise and fall bilaterally. ?Cardiac: S1 and S2 appreciated. No murmurs/rubs or gallops. ?Abdomen: Soft, nontender, normoactive bowel sounds. No rebound/guarding. ?Extremities: Bilateral lower extremities with no edema or rubor. No evidence of varicose veins. Equal tone bilaterally. ?MSK: Bilateral upper and lower extremities 5/5 strength with flexion/extension. Pitch Gatherer strength 5/5. Sensation intact. ?Neuro: CN II-XI grossly intact. Steady gait with ambulation observed. Symmetric reflexes. ?Psych: Stable mood and affect. Assessment: * Assessment: 1.??URI, acute - J06.9 (Prim felecia)??2.??Postnasal drip - R09.82??3.??Sinus congestion - R09.81?? Pleasant 43-year-old male wh o presents the office for an urgent care [...] Dictation was accomplished with the use of Racemi voice recognition software, prone to medical misidentifications and grammatical errors. This is unintentional and the practitioner does try to identify and correct these, but some could still be present. Please do not hesitate to contact practitioner for clarification. Plan: * Treatment: 2.??Others?? Start Albuterol Sulfate HFA Aerosol Solution, 108 (90 Base) MCG/ACT, 2 puff, Inhalation, every 6 hrs As needed shortness of breath, 30 days, 1, Refills 0.?LAB: Mycoplasma pneu. IgG/IgM Abs ?LAB: CBC (INCLUDES DIFF/PLT) ?LAB: Legionella pneumophila Abs.-[id number] ?Imaging: X ray : Chest with 2 views Care Plan: * Problems:?? * Images: Billing Information: * Visit Code:?? 66824 Office Visit, Est Pt., Level 4. * Procedure Codes:?? Care Plan Details* * Sign off status: Completed true * Provider:??LEXII SOFIA PA-C Date:??07/2024 History and Physical Notes * HPI (History of Present Illness) Category Sub-Category Detail Notes Category Not es Constitutional Patient is a 43-year-old male with a past medical history of ankylosing spondylitis, on Remicade, hypogonadism on testosterone, hypertension who presents today for an urgent visit. Patient reports that he has been having an off-and-on cough over 2 to 3 months. He reports he is chronically around sick people with viral symptoms. Patient reports he was seen back in March for URI-like symptoms, completing antibiotics with improvement of symptomatology. Patient reports that he felt better for 2 to 3 weeks, then got worse again. Patient reports that the cough persisted. Patient denies any fevers or chills. Right before [place], patient got together with his neighbors, and the had a cough. Since then, patient reports that he has been having low-grade subjective fevers, as well as feeling short of breath. He reports that he has chest tightness. Reports that he feels that his hearing is muffled, he tried irrigating his ear without any improvement of his symptomatology. He denies a sore throat. He has not tried anything [id number]. Patient reports significant concern for mycoplasma pneumonia, given the fact that he is on Remicade. He denies any exertional dyspnea. There is no dizziness or lightheadedness. Patient ddenies a history of asthma in the past. Physical Examination Category Sub-Category Detail Notes Section Note s General: Age appropriate male, well appearing, no acute distress, speaking in full sentences without respiratory compromise. Skin: Warm, dry and intact. No lesions/rashes/erythema. HEENT: Normocephalic/atraumatic. EOMI intact. PERRLA. Vision intact. No pharyngeal erythema. Ear canal without cerumen or discharge. Tympanic membrane visualized including bony structures and cone of light. Neck/Thyroid: + cervical lymphadenopathy. Full ROM. Thyroid free of nodules and nonenlarged. Lung: Clear to auscultation bilaterally, no wheezes, rales or rhonchi. Tight cough. Equal chest rise and fall bilaterally. Cardiac: S1 and S2 appreciated. No murmurs/rubs or gallops. Abdomen: Soft, nontender, normoactive bowel sounds. No rebound/guarding. Extremities: Bilateral lower extremities with no edema or rubor. No evidence of varicose veins. Equal tone bilaterally. MSK: Bilateral upper and lower extremities 5/5 strength with flexion/extension. Pitch Gatherer strength 5/5. Sensation intact. Neuro: CN II-XI grossly intact. Steady gait with ambulation observed. Symmetric reflexes. Psych: Stable mood and affect
== END 2024-06-09 09:46 | disposition home or self-care (01) ==
LOC: HO.HUSH 08:49
PROVIDERS: PCP Internal Medicine; Visit Provider Urology
DX: E29.1 Testicular hypofunction (principal)
CPT/HCPCS: 99213

== ENCOUNTER → 2024-06-09 08:49 | Outpatient (BNVA) | payer OTHER, SELFPAY | PROVIDERS: PCP Internal Medicine; Visit Provider Urology ==

== ENCOUNTER 2024-12-07 09:23 | Outpatient (AMB) | payer OTHER, SELFPAY ==
--- NOTE | 2024-12-07 09:27 | MHC.OFFVIS ---
Intake Visit Reasons: 6m/labs(pas?) Intake Note: Patient is present for 6M/PSA Urology Medication:TESTOSTERONE Antibiotic Allergy:NONE Blood Thinner:NONE Wharf Tender Head Required: No Allergies No Known Allergies Allergy (Verified 12/07/24 09:28) HPI Comments Details: Judson is a very pleasant male. He is a patient of Dr. Arevalo. 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 Labs - 05/21 T 406, 04/22 930 48 1.6, 08/22 580 1.4, 02/22 T 1500 1.6, 05/24 T 756, 10/23 679 1.1 Continue to follow every 6 months COUNTS INCLUDE 234 BEDS AT [facility] Surgical History History of hernia repair Review of Systems Const Denies chills and Denies fever(s) Card Reports no additional complaints and Denies syncope Resp Denies cough GI Denies abdominal pain and Denies heartburn Reports as per HPI and Denies change in libido Neuro Denies syncope Psych Denies change in libido Endo Denies change in libido Physical Exam Const General: cooperative, healthy appearing, comfortable and no acute distress Orientation/consciousness: patient oriented x3 HEENT Face and sinus: Yes normal facial exam Mouth: moist mucous membranes Neck Neck: Yes normal visual inspection, Yes full ROM and Yes trachea midline Chest Chest palpation & inspection: normal inspection of the chest Resp Effort & Inspection: normal respiratory effort, able to speak in complete sentences and no respiratory distress GI Inspection: Yes normal to inspection Back/Spine/Pelvis Cervical Spine: normal cervical lordosis Thoracic/Lumbar Spine: thoracic and lumbar spine normal to inspection Skin General skin exam: no rashes or lesions noted Neuro General: patient oriented x3, gait normal, tone normal and moves all extremities Extrem General: Yes normal to inspection and Yes capillary refill normal Assessment & Plan Assessment & Plan (1) Hypogonadism male: Code(s): E29.1 - Testicular hypofunction Category: Medical Plan Six-month follow-up Medications: New syringe (disposable) (BD Luer-Tyson Syringe) Testosterone injection weekly 30 ea 0RF E29.1 - Testicular hypofunction, E34.9 - Endocrine disorder, unspecified needle (disp) 23 gauge (BD Integra Needle) Intramuscular injection 30 ea 0RF E29.1 - Testicular hypofunction Changed From testosterone cypionate Please dispose of excess medication after single use 100 mg (0.5 mL) IM QWEEK 28 days 4 mL 5RF E29.1 - Testicular hypofunction To testosterone cypionate MultiUseVial 100 mg (0.5 mL) IM QWEEK 10 mL 1RF 90 days E29.1 - Testicular hypofunction Patient Instructions: This note is constructed using voice recognition software. While every effort has been made to ensure accuracy brake reliner errors may have been included. Imaging studies, laboratory and physical exam results were discussed and reviewed in detail. No major barriers to patient understanding were identified. An opportunity to ask questions regarding the treatment plan was provided. All questions were answered. The patient expressed understanding and agreement with the above treatment plan. The patient is aware they should contact our office by phone for worsening of their current condition or the appearance of new urologic symptoms. Compliance is encouraged with any medications and followup testing that is ordered. It is a privilege to participate in the urologic care of your patient. If you have any questions or concerns regarding treatment for the above conditions, or other urologic issues, please do not hesitate to contact me. The office telephone contact is [phone]. Sincerely, Dr Waldo Lance MD, [facility] - Urology Compassionate Specialist Care for the Genitourinary System Coding Level of Care Code Est Pt Level 3 (97314) Complex EM visit Add On G2211 Diagnoses Hypogonadism male E29.1
--- OUTSIDE RECORDS SUMMARY | 2024-12-07 09:47 | XMS_ITS | Patient Health Record ---
Author Organization [facility] Address [address] [place] [address] Care Team Providers Care Rotary Drum Dyer Name Role Phone Slim Villanueva MD Primary Care Provider Unava Matteo Mcmullen Unavailable [phone] Allergies Allergen (clinical drug ingredient) Drug/Non Drug Allergy documented on EMR Reaction Allergy Type Onset Date Status Seasonale Unknown Drug Allergy Active Reason For Referral No Information Medications Medication SIG (Take, Route, Frequency, Duration) Notes Start Date End Date Status Inflectra evevry six month s Invision Active Valsartan 80 MG 1 tablet Orally Once a day; Duration: 30 day(s) Active Testosterone Active Immunizations Vaccine Route Administration Date Status Comme nts COVID-19 Moderna Vaccine Unknown 05/28/2021 Administered 1st 06/14/20 2nd 07/12/20 Social History Tobacco Use: Social History Observation Description Date Details (start date - stop date) Never Smoker NA - NA Tobacco Use/Smoking Question Answer Notes Are you a: nonsmoker Additional Findings: Tobacco Non-User Current no n-smoker Alcohol Screen Question Answer Notes Did you have a drink contain ing alcohol in the past year? Yes How often did you have a dri nk containing alcohol in the past year? 2 to 3 times a week (3 points) Points 3 Interpretation Negative Tobacco use other than smoking: Question Answer Notes Are you an other tobacco user? No Problems Problem Type SNOMED Code ICD Code Onset Dates Problem Status W/U Status Risk Notes Problem Ankylosing spondylitis (1168766) Ankylosing spondylitis of lumbosacral region (M45.7) Active confirmed Problem Acquired hallux rigidus (2611702) Hallux rigidus of right foot (M20.21) Active confirmed Plan Of Treatment No Information Insurance Providers Payer Name Payer Address Payer Phone Subscriber Number Group Number Insured Name Patient Relationship to Insured Coverage Start Date Coverage End Date [employer] ([facility]) [address] [place] [id number] Judson Javier Self - patient is the insured Medical (General) History Medical History History ICD Code Arthritis Crohns disease High blood pressure Chicken pox Bone implants/screws Ankylosing spondylitis Surgical History Surgery Date(Month/Year) Right Knee ACL reconstruction 2011
--- OUTSIDE RECORDS SUMMARY | 2024-12-07 09:47 | XMS_ITS | Clinical Summary ---
Author Organization [facility] Address [address] [place] [address] Care Team Providers Care Central Office Installer Name Role Phone Slim Villanueva MD Primary Care Provider [phone] Social History Tobacco Use Types Packs/Day Years Used Date Smoking Tobacco: Never Smokeless Tobacco: Never Alcohol Use Standard Drinks/Week Comments Yes 0 (1 standard drink = 0.6 oz pur e alcohol) Sex and Gender Information Value Date Recorded Sex Assigned at Not on file Legal Sex Male 8:28 PM EST Gender Identity Not on file Sexual Orientation Not on file Obstetrics History Plan of Treatment Health Maintenance Due Date Last Done Comments COVID-19 Vaccine (#1) 1985 DTaP,Tdap,and Td Vaccines (1 - Tdap) 10/18/1999 Hepatitis B Vaccines (1 of 3 - 19+ 3-dose series) 10/18/1999 Cholesterol Screening (Lipid Panel) 06/30/2023 Depression Screening 06/30/2023 HIV Screening 06/30/2023 Hepatitis C Screening 06/30/2023 Social Influencers of Health Screening 06/30/2023 Influenza Vaccine (#1) 2025 HIB Vaccines Aged Out No longer eligi ble based on patient's age to complete this topic HPV Vaccines Aged Out No longer eligi ble based on patient's age to complete this topic Hepatitis A Vaccines Aged Out No long er eligible based on patient's age to complete this topic IPV Vaccines Aged Out No longer eligi ble based on patient's age to complete this topic MMR Vaccines Aged Out No longer eligi ble based on patient's age to complete this topic Meningococcal ACWY Vaccine Aged Out N o longer eligible based on patient's age to complete this topic Meningococcal B Vaccine Aged Out No l onger eligible based on patient's age to complete this topic Pneumococcal Vaccine: Pediat rics (0 to 5 Years) and At-Risk Patients (6 to 49 Years) Aged Out No longer eligible b ased on patient's age to complete this topic RSV Immunization Patients Un chavo 20 months Aged Out No longer eligible b ased on patient's age to complete this topic Varicella Vaccines Aged Out No longer eligible based on patient's age to complete this topic Care Teams Central Office Installer Relationship Specialty Start Date End Date Slim Villanueva MD [address] [place] [phone] PCP - General Internal Medicine 10/14/18
--- OUTSIDE RECORDS SUMMARY | 2024-12-07 09:47 | XMS_ITS | Patient Health Record ---
Author Organization [facility] [address] Address [address] [place] [address] Care Team Providers Care Director Patient Name Role Phone ROBIN SEALS Unavailable [phone] LEXII SOFIA Unavailable [phone] Allergies No Known Allergies Results Component Value Reference Range Notes Comp. Metabolic Panel [id number] Reviewed date:07/10/2024 02:55:14 PM Interpretation: Performing Lab:[facility], [facility], Phone - [phone], Director - Josh Notes/Report: Glucose 92 70-99 mg/dL BUN 15 6-24 mg/dL Creatinine 1.03 0.76-1.27 mg/dL eGFR 92 >59 mL/min/1.73 BUN/Creatinine Ratio 15 9-20 Sodium 138 134-144 mmol/L Potassium 4.5 3.5-5.2 mmol/L Chloride 101 96-106 mmol/L Carbon Dioxide, Total 25 20-29 mmol/L Calcium 9.5 8.7-10.2 mg/dL Protein, Total 7.3 6.0-8.5 g/dL Albumin 4.5 4.1-5.1 g/dL Globulin, Total 2.8 1.5-4.5 g/dL Bilirubin, Total 0.9 0.0-1.2 mg/dL Alkaline Phosphatase 58 44-121 IU/L AST (SGOT) 25 0-40 IU/L ALT (SGPT) 21 0-44 IU/L Lipid Panel-[id number] Reviewed date:07/10/2024 02:55:06 PM Interpretation: Performing Lab:[facility], [facility] [place], Phone - [phone], Director - [facility] Notes/Report: Cholesterol, Total 170 100-199 mg/dL Triglycerides 69 0-149 mg/dL HDL Cholesterol 53 >39 mg/dL VLDL Cholesterol Sulaiman 13 5-40 mg/dL LDL Chol Calc ([facility]) 104 0-99 mg/dL CBC With Differential/Platel et-[id number] Reviewed date:07/10/2024 02:55:14 PM Interpretation: Performing Lab:[facility] [place], [address] [facility], Phone - [phone], Director - Josh Notes/Report: WBC 6.1 3.4-10.8 x10E3/uL RBC 5.08 4.14-5.80 x10E6/uL Hemoglobin 16.7 13.0-17.7 g/dL Hematocrit 47.9 37.5-51.0 % MCV 94 79-97 fL MCH 32.9 26.6-33.0 pg MCHC 34.9 31.5-35.7 g/dL RDW 11.9 11.6-15.4 % Platelets 209 150-450 x10E3/uL Neutrophils 45 Not Estab. % Lymphs 40 Not Estab. % Monocytes 11 Not Estab. % Eos 3 Not Estab. % Basos 1 Not Estab. % Neutrophils (Absolute) 2.8 1.4-7.0 x10E3/uL Lymphs (Absolute) 2.4 0.7-3.1 x10E3/uL Monocytes(Absolute) 0.7 0.1-0.9 x10E3/uL Eos (Absolute) 0.2 0.0-0.4 x10E3/uL Baso (Absolute) 0.1 0.0-0.2 x10E3/uL Immature Granulocytes 0 Not Estab. % Immature Grans (Abs) 0.0 0.0-0.1 x10E3/uL Urinalysis, Complete-[id number] Reviewed date:07/10/2024 02:55:14 PM Interpretation: Performing Lab:[facility] [place], [address] [facility], [place], Phone - [phone], Director - Josh Notes/Report: Specific Stephan 1.023 1.005-1.030 pH 6.5 5.0-7.5 Urine-Color Yellow Yellow Appearance Clear Clear WBC Esterase Negative Negative Protein Trace Negative/Trace Glucose Negative Negative Ketones Negative Negative Occult Blood Negative Negative Bilirubin Negative Negative Urobilinogen,Semi-Qn 0.2 0.2-1.0 mg/dL Nitrite, Urine Negative Negative Microscopic Examination Micr oscopic follows if indicated. Microscopic Examination See below: Micr oscopic was indicated and was performed. WBC 0-5 0 - 5 /hpf RBC 0-2 0 - 2 /hpf Epithelial Cells (non renal) 0-10 0 - 10 /hpf Casts None seen None seen /lpf Bacteria None seen None seen/Few Hemoglobin [id number] Reviewed date:07/10/2024 02:55:14 PM Interpretation: Performing Lab:[facility] [place], [address] [place] [address], Phone - [phone], Director - [facility] Notes/Report: Hemoglobin A1c 5.4 4.8-5.6 % . Prediabetes: 5.7 - 6.4 Diabetes: >6.4 Glycemic control for adults with diabetes: <7.0 Mycoplasma pneu. IgG/IgM Abs -[id number] Reviewed date:06/07/2024 10:02:50 AM Interpretation: Performing Lab:[facility] [place], [address] [place] [address], Phone - [phone], Director - [facility] Notes/Report: M pneumoniae IgG Abs <100 0-99 [...] of M. pneumoniae specific IgM antibody detected. CBC With Differential/Platel et-[id number] Reviewed date:06/07/2024 08:08:21 AM Interpretation: Performing Lab:[facility] [place], [address] [place] [address], Phone - [phone], Director - [facility] Notes/Report: WBC 7.0 3.4-10.8 x10E3/uL RBC 5.16 4.14-5.80 x10E6/uL Hemoglobin 16.3 13.0-17.7 g/dL Hematocrit 48.5 37.5-51.0 % MCV 94 79-97 fL MCH 31.6 26.6-33.0 pg MCHC 33.6 31.5-35.7 g/dL RDW 12.0 11.6-15.4 % Platelets 210 150-450 x10E3/uL Neutrophils 42 Not Estab. % Lymphs 45 Not Estab. % Monocytes 10 Not Estab. % Eos 2 Not Estab. % Basos 1 Not Estab. % Neutrophils (Absolute) 2.9 1.4-7.0 x10E3/uL Lymphs (Absolute) 3.2 0.7-3.1 x10E3/uL Monocytes(Absolute) 0.7 0.1-0.9 x10E3/uL Eos (Absolute) 0.2 0.0-0.4 x10E3/uL Baso (Absolute) 0.1 0.0-0.2 x10E3/uL Immature Granulocytes 0 Not Estab. % Immature Grans (Abs) 0.0 0.0-0.1 x10E3/uL Legionella pneumophila Abs.- [id number] Reviewed date:06/07/2024 08:09:31 AM Interpretation: Performing Lab:[facility] [place], [address] [place] [address], [place], Phone - [phone], Director - Josh Notes/Report: Legionella pneumophila Abs. [...] used for diagnosis of infection with Legionella. Reason For Referral Reason Chronic paranasal si nus disease with ENT [facility] Diagnosis 1 Chronic sinusitis, u nspecified location (J.9) Referral Organization [facility] [address] Referring Provider First Name ROBIN Referring Provider Last Name ARNEL Referring Provider Speciality Internal M edicine Referred Provider Specialty Ear, nose an d throat surgeon General Notes [facility], [address]; [place], [place], P [phone], F [phone] Clinical Notes Luc Singhmy 2024 04:27:11 PM >Referral with office note, labs, and imaging sent. TY.Mukesh Redena 10/28/2024 02:34:54 PM > Scheduled for 07/07/25 at 1:45 pm. Pt aware Referral Priority Routine Medications Medication SIG (Take, Route, Frequency, Duration) Notes Start Date End Date Status Testosterone Cypionate 100 MG/ML 1 mL Intramuscular Active Cyclobenzaprine HCl 5 MG TAKE 1 TABLET B Y MOUTH EVERY DAY AT BEDTIME NEEDED FOR 30 DAYS; Duration: 30 prn Active Vitamin D3 Active Multi For Him - as directed Orally Active Albuterol Sulfate HFA 108 (90 Base) MCG/ACT 2 puff Inhalation every 6 hrs; Duration: 30 days As needed shortness of breath 06/03/2024 Active Nurtec 75 MG 1 tablet on the tong ue and allow to dissolve PRN Orally daily; Duration: 15 days 09/12/2024 Active Losartan Potassium 25 MG TAKE 1 TABLET B Y MOUTH EVERY DAY; Duration: 90 Active Remicade 100 MG Intravenous; Duratio n: 42 Days Active Social History Tobacco Use: Social History Observation Description Date Details (start date - stop date) Never Smoker NA - NA Tobacco Use/Smoking Question Answer Notes Are you a 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 alcohol: weekly 3 drinks tob: denies drug: denies 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 alcohol: weekly 3 drinks tob: denies drug: denies 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 alcohol: weekly 3 drinks tob: denies drug: denies 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 alcohol: weekly 3 drinks tob: denies drug: denies 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 alcohol: weekly 3 drinks tob: denies drug: denies 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 alcohol: weekly 3 drinks tob: denies drug: denies 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 alcohol: weekly 3 drinks tob: denies drug: denies 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 alcohol: weekly 3 drinks tob: denies drug: denies exercise: regular cardio Problems Problem Type SNOMED Code ICD Code Onset Dates Problem Status W/U Status Risk Notes Problem 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, 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 Problem Pneumonia (963638984) Pneumonia, unspecified organism (J18.9) Active confirmed Problem Diabetes mellitus screening (339291451) Encounter for screening for diabetes mellitus (Z13.1) Active confirmed Problem Hyperlipidaemia (18390188) Hyperlipidemia, unspecified hyperlipidemia type (E78.5) Active confirmed Problem Annual health maintenance examination (19204930) Annual physical exam (Z00.00) Active confirmed Problem Male hypogonadism (77034022) Hypogonadism in male (E29.1) Active confirmed Problem Chronic sinusitis (33910722) Chronic sinusitis, unspecified location (J32.9) Active confirmed Problem Essential hypertension (83968264) Hypertension, unspecified type (I10) Active confirmed Problem Cough (06418111) Cough (R05.9) Active confirmed Problem Ankylosing spondylitis (9926265) Ankylosing spondylitis, unspecified site of spine (M45.9) Active confirmed Problem Cough (finding) (34950800) Cough, unspecified type (R05.9) Active confirmed Problem Migraine with aura (4452844) Migraine with aura and with status migrainosus, not intractable (G43.101) Active confirmed Problem Lipid screening (899422154) Lipid screening (Z13.220) Active confirmed Problem Essential hypertension (91105062) Hypertension, essential (I10) Active confirmed Problem Migraine (96708398) Migraine syndrome (G43.909) Active confirmed Vital Signs Heart Rate 79 /min 08/30/2024 Temperature 98.8 degrees Fahrenheit 07/14/2024 Oximetry 97 % 08/30/2024 Blood pressure diastolic 86 mm Hg 08/30/2024 Height 70 in 08/30/2024 Blood pressure systolic 138 mm Hg 08/30/2024 Weight 188.7 lbs 08/30/2024 BMI 27.07 kg/m2 08/30/2024 Encounters Encounter Location Date Provider Diagnosis [facility] [address] [place] [address] 03/16/2024 ROBIN SEALS URI, acute J06.9 ; Postnasal drip R09.82 and Sinus congestion R09.[address] [facility] [address] [place] [address] 06/03/2024 LEXII SOFIA URI, acute J06.9 ; Postnasal drip R09.82 and Sinus congestion R09.[address] [facility] [address] [place], [place] 07/14/2024 ROBIN SEALS Hypertension, unspec ified type I10 ; Wellness examination Z00.00 ; Ankylosing spondylitis, unspecified site of spine M45.9 ; Hypogonadism in male E29.1 ; Muscle spasm M62.838 ; Hyperlipidemia, unspecified hyperlipidemia type E78.5 and Acute cough R05.[address] [facility] [address] [place], [place] 08/30/2024 ROBIN SEALS Benign neoplasm of b rain, unspecified D33.2 ; Migraine with aura and with status migrainosus, not intractable G43.101 ; Hypertension, unspecified type I10 ; Ankylosing spondylitis, unspecified site of spine M45.9 ; Hypogonadism in male E29.1 ; Muscle spasm M62.838 and Hyperlipidemia, unspecified hyperlipidemia type E78.5 [facility] [address] [place] [address] 03/15/2024 ROBIN SEALS [facility] [address] [place] [address] 03/16/2024 ROBIN SEALS [facility] [address] [place] [address] 06/02/2024 ROBIN SEALS [facility] [address] [place], [place] 06/03/2024 LEXII SOFIA [facility] [address] [place], [place] 07/14/2024 ROBIN SEALS [facility] [address] [place], [place] 09/02/2024 ROBIN SEALS [facility] [address] [place], [place] 09/12/2024 ROBIN SEALS [facility] [address] [place], [place] 11/02/2024 ROBIN SEALS Assessments Encounter Date Diagnosis (ICD Code) Assessment Notes Treatment Notes Treatment Clinical Notes Section Notes 03/16/2024 Postnasal drip (ICD-10 - R09.82) Pleasant [...] Dictation was accomplished with the use of [employer] voice recognition software, prone to medical misidentifications [...] Dictation was accomplished with the use of [employer] voice recognition software, prone to medical misidentifications [...] Dictation was accomplished with the use of [employer] voice recognition software, prone to medical misidentifications [...] Dictation was accomplished with the use of [employer] voice recognition software, prone to medical misidentifications and grammatical errors. This is unintentional and the practitioner does try to identify and correct these, but some could still be present. Please do not hesitate to contact practitioner for clarification. 07/14/2024 Hypertension, unspecified type (ICD-10 - I10) # Will obtain pneumonia at local pharmacy secondary to history of immunosuppression as recommended by rheumatology, otherwise declines all vaccines. #Acute URI: Patient presents with cold symptoms lasting 3 days, states that consistently sick, is on an immunosuppresive drug infliximab. Patient states that he has had congestion, sore throat, cough along with diarrhea. Patient receieved Respiratory PCR panel and was positive for flu, however out of antiviral treatment window. Patient educated on supportive care with rest and hydration and tylenol for pain/fever reduction. Patient states would not like medication for cough suppression at this time. Patient had diarrhea prior to upper respiratory symptoms states this is common for him and has tried immodium in the past. Plan to trial dicyclomine for diarrhea That he has been experiencing over the past 4 to 5 months, that I believe is unrelated to the flu. Chronic: # Diarrhea/cramping post food, start with dicyclomine, if continued symptoms consider imaging. Has had a colonoscopy which was negative. #Hypertension: Continue with losartan 25 mg, doing well. Educated on signs and symptoms associated with hypertension as well as hypotension. Educated on lifestyle modifications such as a low sodium diet, reducing alcohol and caffeine consumption and limiting stress to manage bp.Doing well on losartan. We will continue that medication and increase as needed.Patient educated to take blood pressure at home. #Ankylosing spondylitis:Continui ng to follow with rheumatology. Stopped Inflectra, has been taking Remicade. Follows with arthritis treatment center. Educated on theracimin vs curcumin for joint pain. Patient occasionally uses CBD oil. Patient has frequent acute URI's most likely due to immunosuppression from Remicade. Recent CBC wnl. Patient educated on side effects of Remicade. #muscle tightness and right lateral epicondylitis Patient has muscle tightness in right arm and b/l latissimus dorsi. Plan to continue cyclobenzaprine 5 mg PRN. Patient has been seen by [facility] for arm pain, has received cortisone injections in the past with good relief, however would not like to be referred back at this time and controlling with PT exercises and OTC topical analgesics PRN. #Hypogonadism: patient follows with urology, Dr. Roland in [place] on testosterone 100 mg. Patient aware of risks/benefits and side effects of medication. #screenings and vaccinations: Patient does not wish to received flu or covid vaccinations, patient is eligible for early administration of pneumococcal vaccination due to immunosuppresion with Remicade, patient aware and wishes to obtain. Patient has received colonscopy due to diarrheal symptoms along with positive HLA-B27 with high suspicion for UC/crohns however did not find UC/crohns, patient is UTD on all other screenings. #labwork: CBC, CMP both wnl, lipid panel wnl, except for LDL to 103, discussed lifestyle modifications, plan to recheck in 6 months Plan to follow up in 6 months and review blood work or sooner if needed. Patient seen and examined. Comprehensive discussion was done on the following. 1. Nutrition: It is important to follow a healthy diet based on lots of vegetables and legumes and good fat. Avoid processed food and processed carbohydrates. Prepare your own meals. Read labels and avoid high fructose corn syrup, processed chemicals added to increase shelf life and preprepared meals. Avoid fast foods. Eat slowly and plan meals for a week. Try to count calories and be mindful of daily calorie intake. Get into the habit of keeping an eye on your weight by using an appropriate scale. Learn to log exercise and discussed fitness Apps like [employer] which can help keep log off calories taken versus calories burned. Local food should be preferred. Discussed Dirty Dozen Versus Clean Fifteen. Discussed healthy supplements like fish oil, Tumeric, Curcumin, Melatonin, Resveratrol, Probiotics, Vitamin-D, Alpha-Lipoic acid, Vitamin-D and coconut oil. 2. It is important to exercise regularly. Is a good habit to walk at least 30 minutes a day. Gentle weightlifting with standard precautions to protect the back. Finding activity like cycling or hiking and get into the habit of engaging in it. Stretching before and after the exercises important. It is also important to contact me if there are any problems like shortness of breath, chest pain, back pain and joint or muscle pain associated with the exercise. 3. Discussed age appropriate screening guidelines. Colonoscopy needs to start at age 50 with stool for occult blood as appropriate. There is a new test that can test for genetic abnormalities in the stool sample, Cologuard. This would not replace a colonoscopy but could be used as a screening tool for patients who do not want a colonoscopy. We discussed the importance of early detection of colon cancer. 4. Discussed current PSA screening. PSA screening can be done in most patients between age 50 and 65. However early detection of prostate cancer needs to carefully be balanced with complications with treatment. These include incontinence, impotence etc. Each patient should decide if they would like to have this test. 5. Discussed safe driving and no use of smart phone while driving 6. Age-appropriate immunizations were discussed. A tetanus booster is needed every 10 years. Flu vaccine is recommended every year just before the start of the flu season. Shingles vaccine is recommended after age 50 but not all insurances cover it. Pneumonia vaccine is given after age 65 unless there are certain comorbidities for which it is started earlier. 7. Diagnostic labs were discussed. These could include/not limited to CBC CMP and lipids with fasting blood glucose and insulin levels. Vitamin D and hemoglobin A1c testing might be appropriate. All questions answered to patients' satisfaction. Patient verbalized understanding of diagnosis and treatments explained. To call sooner prior to the next visit if any questions/concerns arise. Case discussed with collaborating physician Cooper Arevalo who reviewed the assessment and plan. Chart, medications, labs, vital signs reviewed. Dictation was accomplished with the use of [employer] voice recognition software, prone to medical misidentifications and grammatical errors. This is unintentional and the practitioner does try to identify and correct these, but some could still be present. Please do not hesitate to contact the practitioner for clarification. 07/14/2024 Wellness examination (ICD-10 - Z00.00) # Will obtain pneumonia at local pharmacy secondary to history of immunosuppression as recommended by rheumatology, otherwise declines all vaccines. #Acute URI: Patient presents with cold symptoms lasting 3 days, states that consistently sick, is on an immunosuppresive drug infliximab. Patient states that he has had congestion, sore throat, cough along with diarrhea. Patient receieved Respiratory PCR panel and was positive for flu, however out of antiviral treatment window. Patient educated on supportive care with rest and hydration and tylenol for pain/fever reduction. Patient states would not like medication for cough suppression at this time. Patient had diarrhea prior to upper respiratory symptoms states this is common for him and has tried immodium in the past. Plan to trial dicyclomine for diarrhea That he has been experiencing over the past 4 to 5 months, that I believe is unrelated to the flu. Chronic: # Diarrhea/cramping post food, start with dicyclomine, if continued symptoms consider imaging. Has had a colonoscopy which was negative. #Hypertension: Continue with losartan 25 mg, doing well. Educated on signs and symptoms associated with hypertension as well as hypotension. Educated on lifestyle modifications such as a low sodium diet, reducing alcohol and caffeine consumption and limiting stress to manage bp.Doing well on losartan. We will continue that medication and increase as needed.Patient educated to take blood pressure at home. #Ankylosing spondylitis:Continui ng to follow with rheumatology. Stopped Inflectra, has been taking Remicade. Follows with arthritis treatment center. Educated on theracimin vs curcumin for joint pain. Patient occasionally uses CBD oil. Patient has frequent acute URI's most likely due to immunosuppression from Remicade. Recent CBC wnl. Patient educated on side effects of Remicade. #muscle tightness and right lateral epicondylitis Patient has muscle tightness in right arm and b/l latissimus dorsi. Plan to continue cyclobenzaprine 5 mg PRN. Patient has been seen by [facility] for arm pain, has received cortisone injections in the past with good relief, however would not like to be referred back at this time and controlling with PT exercises and OTC topical analgesics PRN. #Hypogonadism: patient follows with urology, Dr. Roland in [place] on testosterone 100 mg. Patient aware of risks/benefits and side effects of medication. #screenings and vaccinations: Patient does not wish to received flu or covid vaccinations, patient is eligible for early administration of pneumococcal vaccination due to immunosuppresion with Remicade, patient aware and wishes to obtain. Patient has received colonscopy due to diarrheal symptoms along with positive HLA-B27 with high suspicion for UC/crohns however did not find UC/crohns, patient is UTD on all other screenings. #labwork: CBC, CMP both wnl, lipid panel wnl, except for LDL to 103, discussed lifestyle modifications, plan to recheck in 6 months Plan to follow up in 6 months and review blood work or sooner if needed. Patient seen and examined. Comprehensive discussion was done on the following. 1. Nutrition: It is important to follow a healthy diet based on lots of vegetables and legumes and good fat. Avoid processed food and processed carbohydrates. Prepare your own meals. Read labels and avoid high fructose corn syrup, processed chemicals added to increase shelf life and preprepared meals. Avoid fast foods. Eat slowly and plan meals for a week. Try to count calories and be mindful of daily calorie intake. Get into the habit of keeping an eye on your weight by using an appropriate scale. Learn to log exercise and discussed fitness Apps like [employer] which can help keep log off calories taken versus calories burned. Local food should be preferred. Discussed Dirty Dozen Versus Clean Fifteen. Discussed healthy supplements like fish oil, Tumeric, Curcumin, Melatonin, Resveratrol, Probiotics, Vitamin-D, Alpha-Lipoic acid, Vitamin-D and coconut oil. 2. It is important to exercise regularly. Is a good habit to walk at least 30 minutes a day. Gentle weightlifting with standard precautions to protect the back. Finding activity like cycling or hiking and get into the habit of engaging in it. Stretching before and after the exercises important. It is also important to contact me if there are any problems like shortness of breath, chest pain, back pain and joint or muscle pain associated with the exercise. 3. Discussed age appropriate screening guidelines. Colonoscopy needs to start at age 50 with stool for occult blood as appropriate. There is a new test that can test for genetic abnormalities in the stool sample, Cologuard. This would not replace a colonoscopy but could be used as a screening tool for patients who do not want a colonoscopy. We discussed the importance of early detection of colon cancer. 4. Discussed current PSA screening. PSA screening can be done in most patients between age 50 and 65. However early detection of prostate cancer needs to carefully be balanced with complications with treatment. These include incontinence, impotence etc. Each patient should decide if they would like to have this test. 5. Discussed safe driving and no use of smart phone while driving 6. Age-appropriate immunizations were discussed. A tetanus booster is needed every 10 years. Flu vaccine is recommended every year just before the start of the flu season. Shingles vaccine is recommended after age 50 but not all insurances cover it. Pneumonia vaccine is given after age 65 unless there are certain comorbidities for which it is started earlier. 7. Diagnostic labs were discussed. These could include/not limited to CBC CMP and lipids with fasting blood glucose and insulin levels. Vitamin D and hemoglobin A1c testing might be appropriate. All questions answered to patients' satisfaction. Patient verbalized understanding of diagnosis and treatments explained. To call sooner prior to the next visit if any questions/concerns arise. Case discussed with collaborating physician Cooper Arevalo who reviewed the assessment and plan. Chart, medications, labs, vital signs reviewed. Dictation was accomplished with the use of [employer] voice recognition software, prone to medical misidentifications and grammatical errors. This is unintentional and the practitioner does try to identify and correct these, but some could still be present. Please do not hesitate to contact the practitioner for clarification. 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 Patient states that he has a history of migraines approximately 8 to 10 years ago for which he had an MRI with an incidental finding of a cyst. Unable to confirm this with the record. Because of patient's history, will repeat MRI without contrast of the brain secondary to headaches. Also continue to encourage anti-inflammatories/ Tylenol/Excedrin Migraine as well as rest. Provided with work note for today 08/30/24. Because of patient's history of hypertension, avoiding sumatriptan, and provided samples of Nurtec. Discussed proper use, side effects. Will send prescription as needed. Patient will call if needed a prescription/without relief for alternative options. Patient does also admit to some neck discomfort that has been going on for years now, for which she is hesitant to take the cyclobenzaprine, but will try as needed. Differential diagnosis including migraine, tension headache, less likely temporal arteritis secondary to lack of pain on physical exam. Herpes zoster also on differential although less likely secondary to lack of skin manifestations.Also consider space-occupying lesion secondary to symptoms/history of questionable cyst on MRI. Did discuss extensively emergency department criteria/criteria to call the office. Offered follow-up next week, but patient states he will call as needed. Discussed conservative treatments, MRI of the brain without contrast, and Nurtec in the meantime. Chronic: # Diarrhea/cramping post food, start with dicyclomine, if continued symptoms consider imaging. Has had a colonoscopy which was negative. #Hypertension: Continue with losartan 25 mg, doing well. Educated on signs and symptoms associated with hypertension as well as hypotension. Educated on lifestyle modifications such as a low sodium diet, reducing alcohol and caffeine consumption and limiting stress to manage bp.Doing well on losartan. We will continue that medication and increase as needed.Patient educated to take blood pressure at home. #Ankylosing spondylitis:Continui ng to follow with rheumatology. Stopped Inflectra, has been taking Remicade. Follows with arthritis treatment center. Educated on theracimin vs curcumin for joint pain. Patient occasionally uses CBD oil. Patient has frequent acute URI's most likely due to immunosuppression from Remicade. Recent CBC wnl. Patient educated on side effects of Remicade. #muscle tightness and right lateral epicondylitis Patient has muscle tightness in right arm and b/l latissimus dorsi. Plan to continue cyclobenzaprine 5 mg PRN. Patient has been seen by [facility] for arm pain, has received cortisone injections in the past with good relief, however would not like to be referred back at this time and controlling with PT exercises and OTC topical analgesics PRN. #Hypogonadism: patient follows with urology, Dr. Roland in [place] on testosterone 100 mg. Patient aware of risks/benefits and side effects of medication. #screenings and vaccinations: Patient does not wish to received flu or covid vaccinations, patient is eligible for early administration of pneumococcal vaccination due to immunosuppresion with Remicade, patient aware and wishes to obtain. Patient has received colonscopy due to diarrheal symptoms along with positive HLA-B27 with high suspicion for UC/crohns however did not find UC/crohns, patient is UTD on all other screenings. #labwork: CBC, CMP both wnl, lipid panel wnl, except for LDL to 103, discussed lifestyle modifications, plan to recheck in 6 months All quetsions answered to patients satisfaction. Patient verbalized understanding of diagnosis and treatments explained. To call sooner prior to next visit it any questions/concerns arise. Case discussed with collaborating physician Cooper Arevalo who reviewed the assessment and plan. Chart, medications, labs, vital signs reviewed. Dictation was accomplished with the use of [employer] voice recognition software, prone to medical misidentifications and grammatical errors. This is unintentional and the practitioner does try to identify and correct these, but some could still be present. Please do not hesitate to contact practitioner for clarification. 08/30/2024 Migraine with aura and with status migrainosus, not intractable (ICD-10 - G43.101) Pleasant 43-year-old male who presents the office for an urgent care visit with 2 weeks of a migraine, with vision changes, hearing changes, brain fog, and aura. Patient states that he has a history of migraines approximately 8 to 10 years ago for which he had an MRI with an incidental finding of a cyst. Unable to confirm this with the record. Because of patient's history, will repeat MRI without contrast of the brain secondary to headaches. Also continue to encourage anti-inflammatories/ Tylenol/Excedrin Migraine as well as rest. Provided with work note for today 08/30/24. Because of patient's history of hypertension, avoiding sumatriptan, and provided samples of Nurtec. Discussed proper use, side effects. Will send prescription as needed. Patient will call if needed a prescription/without relief for alternative options. Patient does also admit to some neck discomfort that has been going on for years now, for which she is hesitant to take the cyclobenzaprine, but will try as needed. Differential diagnosis including migraine, tension headache, less likely temporal arteritis secondary to lack of pain on physical exam. Herpes zoster also on differential although less likely secondary to lack of skin manifestations.Also consider space-occupying lesion secondary to symptoms/history of questionable cyst on MRI. Did discuss extensively emergency department criteria/criteria to call the office. Offered follow-up next week, but patient states he will call as needed. Discussed conservative treatments, MRI of the brain without contrast, and Nurtec in the meantime. Chronic: # Diarrhea/cramping post food, start with dicyclomine, if continued symptoms consider imaging. Has had a colonoscopy which was negative. #Hypertension: Continue with losartan 25 mg, doing well. Educated on signs and symptoms associated with hypertension as well as hypotension. Educated on lifestyle modifications such as a low sodium diet, reducing alcohol and caffeine consumption and limiting stress to manage bp.Doing well on losartan. We will continue that medication and increase as needed.Patient educated to take blood pressure at home. #Ankylosing spondylitis:Continui ng to follow with rheumatology. Stopped Inflectra, has been taking Remicade. Follows with arthritis treatment center. Educated on theracimin vs curcumin for joint pain. Patient occasionally uses CBD oil. Patient has frequent acute URI's most likely due to immunosuppression from Remicade. Recent CBC wnl. Patient educated on side effects of Remicade. #muscle tightness and right lateral epicondylitis Patient has muscle tightness in right arm and b/l latissimus dorsi. Plan to continue cyclobenzaprine 5 mg PRN. Patient has been seen by [facility] for arm pain, has received cortisone injections in the past with good relief, however would not like to be referred back at this time and controlling with PT exercises and OTC topical analgesics PRN. #Hypogonadism: patient follows with urology, Dr. Roland in [place] on testosterone 100 mg. Patient aware of risks/benefits and side effects of medication. #screenings and vaccinations: Patient does not wish to received flu or covid vaccinations, patient is eligible for early administration of pneumococcal vaccination due to immunosuppresion with Remicade, patient aware and wishes to obtain. Patient has received colonscopy due to diarrheal symptoms along with positive HLA-B27 with high suspicion for UC/crohns however did not find UC/crohns, patient is UTD on all other screenings. #labwork: CBC, CMP both wnl, lipid panel wnl, except for LDL to 103, discussed lifestyle modifications, plan to recheck in 6 months All quetsions answered to patients satisfaction. Patient verbalized understanding of diagnosis and treatments explained. To call sooner prior to next visit it any questions/concerns arise. Case discussed with collaborating physician Cooper Arevalo who reviewed the assessment and plan. Chart, medications, labs, vital signs reviewed. Dictation was accomplished with the use of [employer] voice recognition software, prone to medical misidentifications and grammatical errors. This is unintentional and the practitioner does try to identify and correct these, but some could still be present. Please do not hesitate to contact practitioner for clarification. 08/30/2024 Hypertension, unspecified type (ICD-10 - I10) Pleasant 43-year-old male who presents the office for an urgent care visit with 2 weeks of a migraine, with vision changes, hearing changes, brain fog, and aura. Patient states that he has a history of migraines approximately 8 to 10 years ago for which he had an MRI with an incidental finding of a cyst. Unable to confirm this with the record. Because of patient's history, will repeat MRI without contrast of the brain secondary to headaches. Also continue to encourage anti-inflammatories/ Tylenol/Excedrin Migraine as well as rest. Provided with work note for today 08/30/24. Because of patient's history of hypertension, avoiding sumatriptan, and provided samples of Nurtec. Discussed proper use, side effects. Will send prescription as needed. Patient will call if needed a prescription/without relief for alternative options. Patient does also admit to some neck discomfort that has been going on for years now, for which she is hesitant to take the cyclobenzaprine, but will try as needed. Differential diagnosis including migraine, tension headache, less likely temporal arteritis secondary to lack of pain on physical exam. Herpes zoster also on differential although less likely secondary to lack of skin manifestations.Also consider space-occupying lesion secondary to symptoms/history of questionable cyst on MRI. Did discuss extensively emergency department criteria/criteria to call the office. Offered follow-up next week, but patient states he will call as needed. Discussed conservative treatments, MRI of the brain without contrast, and Nurtec in the meantime. Chronic: # Diarrhea/cramping post food, start with dicyclomine, if continued symptoms consider imaging. Has had a colonoscopy which was negative. #Hypertension: Continue with losartan 25 mg, doing well. Educated on signs and symptoms associated with hypertension as well as hypotension. Educated on lifestyle modifications such as a low sodium diet, reducing alcohol and caffeine consumption and limiting stress to manage bp.Doing well on losartan. We will continue that medication and increase as needed.Patient educated to take blood pressure at home. #Ankylosing spondylitis:Continui ng to follow with rheumatology. Stopped Inflectra, has been taking Remicade. Follows with arthritis treatment center. Educated on theracimin vs curcumin for joint pain. Patient occasionally uses CBD oil. Patient has frequent acute URI's most likely due to immunosuppression from Remicade. Recent CBC wnl. Patient educated on side effects of Remicade. #muscle tightness and right lateral epicondylitis Patient has muscle tightness in right arm and b/l latissimus dorsi. Plan to continue cyclobenzaprine 5 mg PRN. Patient has been seen by [facility] for arm pain, has received cortisone injections in the past with good relief, however would not like to be referred back at this time and controlling with PT exercises and OTC topical analgesics PRN. #Hypogonadism: patient follows with urology, Dr. Roland in [place] on testosterone 100 mg. Patient aware of risks/benefits and side effects of medication. #screenings and vaccinations: Patient does not wish to received flu or covid vaccinations, patient is eligible for early administration of pneumococcal vaccination due to immunosuppresion with Remicade, patient aware and wishes to obtain. Patient has received colonscopy due to diarrheal symptoms along with positive HLA-B27 with high suspicion for UC/crohns however did not find UC/crohns, patient is UTD on all other screenings. #labwork: CBC, CMP both wnl, lipid panel wnl, except for LDL to 103, discussed lifestyle modifications, plan to recheck in 6 months All quetsions answered to patients satisfaction. Patient verbalized understanding of diagnosis and treatments explained. To call sooner prior to next visit it any questions/concerns arise. Case discussed with collaborating physician Cooper Arevalo who reviewed the assessment and plan. Chart, medications, labs, vital signs reviewed. Dictation was accomplished with the use of [employer] voice recognition software, prone to medical misidentifications and grammatical errors. This is unintentional and the practitioner does try to identify and correct these, but some could still be present. Please do not hesitate to contact practitioner for clarification. 07/14/2024 Ankylosing spondylitis, unspecified site of spine (ICD-10 - M45.9) # Will obtain pneumonia at local pharmacy secondary to history of immunosuppression as recommended by rheumatology, otherwise declines all vaccines. #Acute URI: Patient presents with cold symptoms lasting 3 days, states that consistently sick, is on an immunosuppresive drug infliximab. Patient states that he has had congestion, sore throat, cough along with diarrhea. Patient receieved Respiratory PCR panel and was positive for flu, however out of antiviral treatment window. Patient educated on supportive care with rest and hydration and tylenol for pain/fever reduction. Patient states would not like medication for cough suppression at this time. Patient had diarrhea prior to upper respiratory symptoms states this is common for him and has tried immodium in the past. Plan to trial dicyclomine for diarrhea That he has been experiencing over the past 4 to 5 months, that I believe is unrelated to the flu. Chronic: # Diarrhea/cramping post food, start with dicyclomine, if continued symptoms consider imaging. Has had a colonoscopy which was negative. #Hypertension: Continue with losartan 25 mg, doing well. Educated on signs and symptoms associated with hypertension as well as hypotension. Educated on lifestyle modifications such as a low sodium diet, reducing alcohol and caffeine consumption and limiting stress to manage bp.Doing well on losartan. We will continue that medication and increase as needed.Patient educated to take blood pressure at home. #Ankylosing spondylitis:Continui ng to follow with rheumatology. Stopped Inflectra, has been taking Remicade. Follows with arthritis treatment center. Educated on theracimin vs curcumin for joint pain. Patient occasionally uses CBD oil. Patient has frequent acute URI's most likely due to immunosuppression from Remicade. Recent CBC wnl. Patient educated on side effects of Remicade. #muscle tightness and right lateral epicondylitis Patient has muscle tightness in right arm and b/l latissimus dorsi. Plan to continue cyclobenzaprine 5 mg PRN. Patient has been seen by [facility] for arm pain, has received cortisone injections in the past with good relief, however would not like to be referred back at this time and controlling with PT exercises and OTC topical analgesics PRN. #Hypogonadism: patient follows with urology, Dr. Roland in [place] on testosterone 100 mg. Patient aware of risks/benefits and side effects of medication. #screenings and vaccinations: Patient does not wish to received flu or covid vaccinations, patient is eligible for early administration of pneumococcal vaccination due to immunosuppresion with Remicade, patient aware and wishes to obtain. Patient has received colonscopy due to diarrheal symptoms along with positive HLA-B27 with high suspicion for UC/crohns however did not find UC/crohns, patient is UTD on all other screenings. #labwork: CBC, CMP both wnl, lipid panel wnl, except for LDL to 103, discussed lifestyle modifications, plan to recheck in 6 months Plan to follow up in 6 months and review blood work or sooner if needed. Patient seen and examined. Comprehensive discussion was done on the following. 1. Nutrition: It is important to follow a healthy diet based on lots of vegetables and legumes and good fat. Avoid processed food and processed carbohydrates. Prepare your own meals. Read labels and avoid high fructose corn syrup, processed chemicals added to increase shelf life and preprepared meals. Avoid fast foods. Eat slowly and plan meals for a week. Try to count calories and be mindful of daily calorie intake. Get into the habit of keeping an eye on your weight by using an appropriate scale. Learn to log exercise and discussed fitness Apps like [employer] which can help keep log off calories taken versus calories burned. Local food should be preferred. Discussed Dirty Dozen Versus Clean Fifteen. Discussed healthy supplements like fish oil, Tumeric, Curcumin, Melatonin, Resveratrol, Probiotics, Vitamin-D, Alpha-Lipoic acid, Vitamin-D and coconut oil. 2. It is important to exercise regularly. Is a good habit to walk at least 30 minutes a day. Gentle weightlifting with standard precautions to protect the back. Finding activity like cycling or hiking and get into the habit of engaging in it. Stretching before and after the exercises important. It is also important to contact me if there are any problems like shortness of breath, chest pain, back pain and joint or muscle pain associated with the exercise. 3. Discussed age appropriate screening guidelines. Colonoscopy needs to start at age 50 with stool for occult blood as appropriate. There is a new test that can test for genetic abnormalities in the stool sample, Cologuard. This would not replace a colonoscopy but could be used as a screening tool for patients who do not want a colonoscopy. We discussed the importance of early detection of colon cancer. 4. Discussed current PSA screening. PSA screening can be done in most patients between age 50 and 65. However early detection of prostate cancer needs to carefully be balanced with complications with treatment. These include incontinence, impotence etc. Each patient should decide if they would like to have this test. 5. Discussed safe driving and no use of smart phone while driving 6. Age-appropriate immunizations were discussed. A tetanus booster is needed every 10 years. Flu vaccine is recommended every year just before the start of the flu season. Shingles vaccine is recommended after age 50 but not all insurances cover it. Pneumonia vaccine is given after age 65 unless there are certain comorbidities for which it is started earlier. 7. Diagnostic labs were discussed. These could include/not limited to CBC CMP and lipids with fasting blood glucose and insulin levels. Vitamin D and hemoglobin A1c testing might be appropriate. All questions answered to patients' satisfaction. Patient verbalized understanding of diagnosis and treatments explained. To call sooner prior to the next visit if any questions/concerns arise. Case discussed with collaborating [...] present. Please do not hesitate to contact the practitioner for clarification. 06/03/2024 Sinus congestion (ICD-10 [...] Dictation was accomplished with the use of [employer] voice recognition software, prone to medical misidentifications [...] Dictation was accomplished with the use of [employer] voice recognition software, prone to medical misidentifications and grammatical errors. This is unintentional and the practitioner does try to identify and correct these, but some could still be present. Please do not hesitate to contact practitioner for clarification. 07/14/2024 Hypogonadism in male (ICD-10 - E29.1) # Will obtain pneumonia at local pharmacy secondary to history of immunosuppression as recommended by rheumatology, otherwise declines all vaccines. #Acute URI: Patient presents with cold symptoms lasting 3 days, states that consistently sick, is on an immunosuppresive drug infliximab. Patient states that he has had congestion, sore throat, cough along with diarrhea. Patient receieved Respiratory PCR panel and was positive for flu, however out of antiviral treatment window. Patient educated on supportive care with rest and hydration and tylenol for pain/fever reduction. Patient states would not like medication for cough suppression at this time. Patient had diarrhea prior to upper respiratory symptoms states this is common for him and has tried immodium in the past. Plan to trial dicyclomine for diarrhea That he has been experiencing over the past 4 to 5 months, that I believe is unrelated to the flu. Chronic: # Diarrhea/cramping post food, start with dicyclomine, if continued symptoms consider imaging. Has had a colonoscopy which was negative. #Hypertension: Continue with losartan 25 mg, doing well. Educated on signs and symptoms associated with hypertension as well as hypotension. Educated on lifestyle modifications such as a low sodium diet, reducing alcohol and caffeine consumption and limiting stress to manage bp.Doing well on losartan. We will continue that medication and increase as needed.Patient educated to take blood pressure at home. #Ankylosing spondylitis:Continui ng to follow with rheumatology. Stopped Inflectra, has been taking Remicade. Follows with arthritis treatment center. Educated on theracimin vs curcumin for joint pain. Patient occasionally uses CBD oil. Patient has frequent acute URI's most likely due to immunosuppression from Remicade. Recent CBC wnl. Patient educated on side effects of Remicade. #muscle tightness and right lateral epicondylitis Patient has muscle tightness in right arm and b/l latissimus dorsi. Plan to continue cyclobenzaprine 5 mg PRN. Patient has been seen by [facility] for arm pain, has received cortisone injections in the past with good relief, however would not like to be referred back at this time and controlling with PT exercises and OTC topical analgesics PRN. #Hypogonadism: patient follows with urology, Dr. Roland in [place] on testosterone 100 mg. Patient aware of risks/benefits and side effects of medication. #screenings and vaccinations: Patient does not wish to received flu or covid vaccinations, patient is eligible for early administration of pneumococcal vaccination due to immunosuppresion with Remicade, patient aware and wishes to obtain. Patient has received colonscopy due to diarrheal symptoms along with positive HLA-B27 with high suspicion for UC/crohns however did not find UC/crohns, patient is UTD on all other screenings. #labwork: CBC, CMP both wnl, lipid panel wnl, except for LDL to 103, discussed lifestyle modifications, plan to recheck in 6 months Plan to follow up in 6 months and review blood work or sooner if needed. Patient seen and examined. Comprehensive discussion was done on the following. 1. Nutrition: It is important to follow a healthy diet based on lots of vegetables and legumes and good fat. Avoid processed food and processed carbohydrates. Prepare your own meals. Read labels and avoid high fructose corn syrup, processed chemicals added to increase shelf life and preprepared meals. Avoid fast foods. Eat slowly and plan meals for a week. Try to count calories and be mindful of daily calorie intake. Get into the habit of keeping an eye on your weight by using an appropriate scale. Learn to log exercise and discussed fitness Apps like [employer] which can help keep log off calories taken versus calories burned. Local food should be preferred. Discussed Dirty Dozen Versus Clean Fifteen. Discussed healthy supplements like fish oil, Tumeric, Curcumin, Melatonin, Resveratrol, Probiotics, Vitamin-D, Alpha-Lipoic acid, Vitamin-D and coconut oil. 2. It is important to exercise regularly. Is a good habit to walk at least 30 minutes a day. Gentle weightlifting with standard precautions to protect the back. Finding activity like cycling or hiking and get into the habit of engaging in it. Stretching before and after the exercises important. It is also important to contact me if there are any problems like shortness of breath, chest pain, back pain and joint or muscle pain associated with the exercise. 3. Discussed age appropriate screening guidelines. Colonoscopy needs to start at age 50 with stool for occult blood as appropriate. There is a new test that can test for genetic abnormalities in the stool sample, Cologuard. This would not replace a colonoscopy but could be used as a screening tool for patients who do not want a colonoscopy. We discussed the importance of early detection of colon cancer. 4. Discussed current PSA screening. PSA screening can be done in most patients between age 50 and 65. However early detection of prostate cancer needs to carefully be balanced with complications with treatment. These include incontinence, impotence etc. Each patient should decide if they would like to have this test. 5. Discussed safe driving and no use of smart phone while driving 6. Age-appropriate immunizations were discussed. A tetanus booster is needed every 10 years. Flu vaccine is recommended every year just before the start of the flu season. Shingles vaccine is recommended after age 50 but not all insurances cover it. Pneumonia vaccine is given after age 65 unless there are certain comorbidities for which it is started earlier. 7. Diagnostic labs were discussed. These could include/not limited to CBC CMP and lipids with fasting blood glucose and insulin levels. Vitamin D and hemoglobin A1c testing might be appropriate. All questions answered to patients' satisfaction. Patient verbalized understanding of diagnosis and treatments explained. To call sooner prior to the next visit if any questions/concerns arise. Case discussed with collaborating physician Cooper Arevalo who reviewed the assessment and plan. Chart, medications, labs, vital signs reviewed. Dictation was accomplished with the use of [employer] voice recognition software, prone to medical misidentifications and grammatical errors. This is unintentional and the practitioner does try to identify and correct these, but some could still be present. Please do not hesitate to contact the practitioner for clarification. 08/30/2024 Ankylosing spondylitis, unspecified site of spine (ICD-10 - M45.9) Pleasant 43-year-old male who presents the office for an urgent care visit with 2 weeks of a migraine, with vision changes, hearing changes, brain fog, and aura. Patient states that he has a history of migraines approximately 8 to 10 years ago for which he had an MRI with an incidental finding of a cyst. Unable to confirm this with the record. Because of patient's history, will repeat MRI without contrast of the brain secondary to headaches. Also continue to encourage anti-inflammatories/ Tylenol/Excedrin Migraine as well as rest. Provided with work note for today 08/30/24. Because of patient's history of hypertension, avoiding sumatriptan, and provided samples of Nurtec. Discussed proper use, side effects. Will send prescription as needed. Patient will call if needed a prescription/without relief for alternative options. Patient does also admit to some neck discomfort that has been going on for years now, for which she is hesitant to take the cyclobenzaprine, but will try as needed. Differential diagnosis including migraine, tension headache, less likely temporal arteritis secondary to lack of pain on physical exam. Herpes zoster also on differential although less likely secondary to lack of skin manifestations.Also consider space-occupying lesion secondary to symptoms/history of questionable cyst on MRI. Did discuss extensively emergency department criteria/criteria to call the office. Offered follow-up next week, but patient states he will call as needed. Discussed conservative treatments, MRI of the brain without contrast, and Nurtec in the meantime. Chronic: # Diarrhea/cramping post food, start with dicyclomine, if continued symptoms consider imaging. Has had a colonoscopy which was negative. #Hypertension: Continue with losartan 25 mg, doing well. Educated on signs and symptoms associated with hypertension as well as hypotension. Educated on lifestyle modifications such as a low sodium diet, reducing alcohol and caffeine consumption and limiting stress to manage bp.Doing well on losartan. We will continue that medication and increase as needed.Patient educated to take blood pressure at home. #Ankylosing spondylitis:Continui ng to follow with rheumatology. Stopped Inflectra, has been taking Remicade. Follows with arthritis treatment center. Educated on theracimin vs curcumin for joint pain. Patient occasionally uses CBD oil. Patient has frequent acute URI's most likely due to immunosuppression from Remicade. Recent CBC wnl. Patient educated on side effects of Remicade. #muscle tightness and right lateral epicondylitis Patient has muscle tightness in right arm and b/l latissimus dorsi. Plan to continue cyclobenzaprine 5 mg PRN. Patient has been seen by [facility] for arm pain, has received cortisone injections in the past with good relief, however would not like to be referred back at this time and controlling with PT exercises and OTC topical analgesics PRN. #Hypogonadism: patient follows with urology, Dr. Roland in [place] on testosterone 100 mg. Patient aware of risks/benefits and side effects of medication. #screenings and vaccinations: Patient does not wish to received flu or covid vaccinations, patient is eligible for early administration of pneumococcal vaccination due to immunosuppresion with Remicade, patient aware and wishes to obtain. Patient has received colonscopy due to diarrheal symptoms along with positive HLA-B27 with high suspicion for UC/crohns however did not find UC/crohns, patient is UTD on all other screenings. #labwork: CBC, CMP both wnl, lipid panel wnl, except for LDL to 103, discussed lifestyle modifications, plan to recheck in 6 months All quetsions answered to patients satisfaction. Patient verbalized understanding of diagnosis and treatments explained. To call sooner prior to next visit it any questions/concerns arise. Case discussed with collaborating physician Cooper Arevalo who reviewed the assessment and plan. Chart, medications, labs, vital signs reviewed. Dictation was accomplished with the use of [employer] voice recognition software, prone to medical misidentifications and grammatical errors. This is unintentional and the practitioner does try to identify and correct these, but some could still be present. Please do not hesitate to contact practitioner for clarification. 08/30/2024 Hypogonadism in male (ICD-10 - E29.1) Pleasant 43-year-old male who presents the office for an urgent care visit with 2 weeks of a migraine, with vision changes, hearing changes, brain fog, and aura. Patient states that he has a history of migraines approximately 8 to 10 years ago for which he had an MRI with an incidental finding of a cyst. Unable to confirm this with the record. Because of patient's history, will repeat MRI without contrast of the brain secondary to headaches. Also continue to encourage anti-inflammatories/ Tylenol/Excedrin Migraine as well as rest. Provided with work note for today 08/30/24. Because of patient's history of hypertension, avoiding sumatriptan, and provided samples of Nurtec. Discussed proper use, side effects. Will send prescription as needed. Patient will call if needed a prescription/without relief for alternative options. Patient does also admit to some neck discomfort that has been going on for years now, for which she is hesitant to take the cyclobenzaprine, but will try as needed. Differential diagnosis including migraine, tension headache, less likely temporal arteritis secondary to lack of pain on physical exam. Herpes zoster also on differential although less likely secondary to lack of skin manifestations.Also consider space-occupying lesion secondary to symptoms/history of questionable cyst on MRI. Did discuss extensively emergency department criteria/criteria to call the office. Offered follow-up next week, but patient states he will call as needed. Discussed conservative treatments, MRI of the brain without contrast, and Nurtec in the meantime. Chronic: # Diarrhea/cramping post food, start with dicyclomine, if continued symptoms consider imaging. Has had a colonoscopy which was negative. #Hypertension: Continue with losartan 25 mg, doing well. Educated on signs and symptoms associated with hypertension as well as hypotension. Educated on lifestyle modifications such as a low sodium diet, reducing alcohol and caffeine consumption and limiting stress to manage bp.Doing well on losartan. We will continue that medication and increase as needed.Patient educated to take blood pressure at home. #Ankylosing spondylitis:Continui ng to follow with rheumatology. Stopped Inflectra, has been taking Remicade. Follows with arthritis treatment center. Educated on theracimin vs curcumin for joint pain. Patient occasionally uses CBD oil. Patient has frequent acute URI's most likely due to immunosuppression from Remicade. Recent CBC wnl. Patient educated on side effects of Remicade. #muscle tightness and right lateral epicondylitis Patient has muscle tightness in right arm and b/l latissimus dorsi. Plan to continue cyclobenzaprine 5 mg PRN. Patient has been seen by [facility] for arm pain, has received cortisone injections in the past with good relief, however would not like to be referred back at this time and controlling with PT exercises and OTC topical analgesics PRN. #Hypogonadism: patient follows with urology, Dr. Roland in [place] on testosterone 100 mg. Patient aware of risks/benefits and side effects of medication. #screenings and vaccinations: Patient does not wish to received flu or covid vaccinations, patient is eligible for early administration of pneumococcal vaccination due to immunosuppresion with Remicade, patient aware and wishes to obtain. Patient has received colonscopy due to diarrheal symptoms along with positive HLA-B27 with high suspicion for UC/crohns however did not find UC/crohns, patient is UTD on all other screenings. #labwork: CBC, CMP both wnl, lipid panel wnl, except for LDL to 103, discussed lifestyle modifications, plan to recheck in 6 months All quetsions answered to patients satisfaction. Patient verbalized understanding of diagnosis and treatments explained. To call sooner prior to next visit it any questions/concerns arise. Case discussed with collaborating physician Cooper Arevalo who reviewed the assessment and plan. Chart, medications, labs, vital signs reviewed. Dictation was accomplished with the use of [employer] voice recognition software, prone to medical misidentifications and grammatical errors. This is unintentional and the practitioner does try to identify and correct these, but some could still be present. Please do not hesitate to contact practitioner for clarification. 07/14/2024 Muscle spasm (ICD-10 - M62.838) # Will obtain pneumonia at local pharmacy secondary to history of immunosuppression as recommended by rheumatology, otherwise declines all vaccines. #Acute URI: Patient presents with cold symptoms lasting 3 days, states that consistently sick, is on an immunosuppresive drug infliximab. Patient states that he has had congestion, sore throat, cough along with diarrhea. Patient receieved Respiratory PCR panel and was positive for flu, however out of antiviral treatment window. Patient educated on supportive care with rest and hydration and tylenol for pain/fever reduction. Patient states would not like medication for cough suppression at this time. Patient had diarrhea prior to upper respiratory symptoms states this is common for him and has tried immodium in the past. Plan to trial dicyclomine for diarrhea That he has been experiencing over the past 4 to 5 months, that I believe is unrelated to the flu. Chronic: # Diarrhea/cramping post food, start with dicyclomine, if continued symptoms consider imaging. Has had a colonoscopy which was negative. #Hypertension: Continue with losartan 25 mg, doing well. Educated on signs and symptoms associated with hypertension as well as hypotension. Educated on lifestyle modifications such as a low sodium diet, reducing alcohol and caffeine consumption and limiting stress to manage bp.Doing well on losartan. We will continue that medication and increase as needed.Patient educated to take blood pressure at home. #Ankylosing spondylitis:Continui ng to follow with rheumatology. Stopped Inflectra, has been taking Remicade. Follows with arthritis treatment center. Educated on theracimin vs curcumin for joint pain. Patient occasionally uses CBD oil. Patient has frequent acute URI's most likely due to immunosuppression from Remicade. Recent CBC wnl. Patient educated on side effects of Remicade. #muscle tightness and right lateral epicondylitis Patient has muscle tightness in right arm and b/l latissimus dorsi. Plan to continue cyclobenzaprine 5 mg PRN. Patient has been seen by [facility] for arm pain, has received cortisone injections in the past with good relief, however would not like to be referred back at this time and controlling with PT exercises and OTC topical analgesics PRN. #Hypogonadism: patient follows with urology, Dr. Roland in [place] on testosterone 100 mg. Patient aware of risks/benefits and side effects of medication. #screenings and vaccinations: Patient does not wish to received flu or covid vaccinations, patient is eligible for early administration of pneumococcal vaccination due to immunosuppresion with Remicade, patient aware and wishes to obtain. Patient has received colonscopy due to diarrheal symptoms along with positive HLA-B27 with high suspicion for UC/crohns however did not find UC/crohns, patient is UTD on all other screenings. #labwork: CBC, CMP both wnl, lipid panel wnl, except for LDL to 103, discussed lifestyle modifications, plan to recheck in 6 months Plan to follow up in 6 months and review blood work or sooner if needed. Patient seen and examined. Comprehensive discussion was done on the following. 1. Nutrition: It is important to follow a healthy diet based on lots of vegetables and legumes and good fat. Avoid processed food and processed carbohydrates. Prepare your own meals. Read labels and avoid high fructose corn syrup, processed chemicals added to increase shelf life and preprepared meals. Avoid fast foods. Eat slowly and plan meals for a week. Try to count calories and be mindful of daily calorie intake. Get into the habit of keeping an eye on your weight by using an appropriate scale. Learn to log exercise and discussed fitness Apps like [employer] which can help keep log off calories taken versus calories burned. Local food should be preferred. Discussed Dirty Dozen Versus Clean Fifteen. Discussed healthy supplements like fish oil, Tumeric, Curcumin, Melatonin, Resveratrol, Probiotics, Vitamin-D, Alpha-Lipoic acid, Vitamin-D and coconut oil. 2. It is important to exercise regularly. Is a good habit to walk at least 30 minutes a day. Gentle weightlifting with standard precautions to protect the back. Finding activity like cycling or hiking and get into the habit of engaging in it. Stretching before and after the exercises important. It is also important to contact me if there are any problems like shortness of breath, chest pain, back pain and joint or muscle pain associated with the exercise. 3. Discussed age appropriate screening guidelines. Colonoscopy needs to start at age 50 with stool for occult blood as appropriate. There is a new test that can test for genetic abnormalities in the stool sample, Cologuard. This would not replace a colonoscopy but could be used as a screening tool for patients who do not want a colonoscopy. We discussed the importance of early detection of colon cancer. 4. Discussed current PSA screening. PSA screening can be done in most patients between age 50 and 65. However early detection of prostate cancer needs to carefully be balanced with complications with treatment. These include incontinence, impotence etc. Each patient should decide if they would like to have this test. 5. Discussed safe driving and no use of smart phone while driving 6. Age-appropriate immunizations were discussed. A tetanus booster is needed every 10 years. Flu vaccine is recommended every year just before the start of the flu season. Shingles vaccine is recommended after age 50 but not all insurances cover it. Pneumonia vaccine is given after age 65 unless there are certain comorbidities for which it is started earlier. 7. Diagnostic labs were discussed. These could include/not limited to CBC CMP and lipids with fasting blood glucose and insulin levels. Vitamin D and hemoglobin A1c testing might be appropriate. All questions answered to patients' satisfaction. Patient verbalized understanding of diagnosis and treatments explained. To call sooner prior to the next visit if any questions/concerns arise. Case discussed with collaborating physician Cooper Arevalo who reviewed the assessment and plan. Chart, medications, labs, vital signs reviewed. Dictation was accomplished with the use of [employer] voice recognition software, prone to medical misidentifications and grammatical errors. This is unintentional and the practitioner does try to identify and correct these, but some could still be present. Please do not hesitate to contact the practitioner for clarification. 07/14/2024 Hyperlipidemia, unspecified hyperlipidemia type (ICD-10 - E78.5) # Will obtain pneumonia at local pharmacy secondary to history of immunosuppression as recommended by rheumatology, otherwise declines all vaccines. #Acute URI: Patient presents with cold symptoms lasting 3 days, states that consistently sick, is on an immunosuppresive drug infliximab. Patient states that he has had congestion, sore throat, cough along with diarrhea. Patient receieved Respiratory PCR panel and was positive for flu, however out of antiviral treatment window. Patient educated on supportive care with rest and hydration and tylenol for pain/fever reduction. Patient states would not like medication for cough suppression at this time. Patient had diarrhea prior to upper respiratory symptoms states this is common for him and has tried immodium in the past. Plan to trial dicyclomine for diarrhea That he has been experiencing over the past 4 to 5 months, that I believe is unrelated to the flu. Chronic: # Diarrhea/cramping post food, start with dicyclomine, if continued symptoms consider imaging. Has had a colonoscopy which was negative. #Hypertension: Continue with losartan 25 mg, doing well. Educated on signs and symptoms associated with hypertension as well as hypotension. Educated on lifestyle modifications such as a low sodium diet, reducing alcohol and caffeine consumption and limiting stress to manage bp.Doing well on losartan. We will continue that medication and increase as needed.Patient educated to take blood pressure at home. #Ankylosing spondylitis:Continui ng to follow with rheumatology. Stopped Inflectra, has been taking Remicade. Follows with arthritis treatment center. Educated on theracimin vs curcumin for joint pain. Patient occasionally uses CBD oil. Patient has frequent acute URI's most likely due to immunosuppression from Remicade. Recent CBC wnl. Patient educated on side effects of Remicade. #muscle tightness and right lateral epicondylitis Patient has muscle tightness in right arm and b/l latissimus dorsi. Plan to continue cyclobenzaprine 5 mg PRN. Patient has been seen by [facility] for arm pain, has received cortisone injections in the past with good relief, however would not like to be referred back at this time and controlling with PT exercises and OTC topical analgesics PRN. #Hypogonadism: patient follows with urology, Dr. Roland in [place] on testosterone 100 mg. Patient aware of risks/benefits and side effects of medication. #screenings and vaccinations: Patient does not wish to received flu or covid vaccinations, patient is eligible for early administration of pneumococcal vaccination due to immunosuppresion with Remicade, patient aware and wishes to obtain. Patient has received colonscopy due to diarrheal symptoms along with positive HLA-B27 with high suspicion for UC/crohns however did not find UC/crohns, patient is UTD on all other screenings. #labwork: CBC, CMP both wnl, lipid panel wnl, except for LDL to 103, discussed lifestyle modifications, plan to recheck in 6 months Plan to follow up in 6 months and review blood work or sooner if needed. Patient seen and examined. Comprehensive discussion was done on the following. 1. Nutrition: It is important to follow a healthy diet based on lots of vegetables and legumes and good fat. Avoid processed food and processed carbohydrates. Prepare your own meals. Read labels and avoid high fructose corn syrup, processed chemicals added to increase shelf life and preprepared meals. Avoid fast foods. Eat slowly and plan meals for a week. Try to count calories and be mindful of daily calorie intake. Get into the habit of keeping an eye on your weight by using an appropriate scale. Learn to log exercise and discussed fitness Apps like [employer] which can help keep log off calories taken versus calories burned. Local food should be preferred. Discussed Dirty Dozen Versus Clean Fifteen. Discussed healthy supplements like fish oil, Tumeric, Curcumin, Melatonin, Resveratrol, Probiotics, Vitamin-D, Alpha-Lipoic acid, Vitamin-D and coconut oil. 2. It is important to exercise regularly. Is a good habit to walk at least 30 minutes a day. Gentle weightlifting with standard precautions to protect the back. Finding activity like cycling or hiking and get into the habit of engaging in it. Stretching before and after the exercises important. It is also important to contact me if there are any problems like shortness of breath, chest pain, back pain and joint or muscle pain associated with the exercise. 3. Discussed age appropriate screening guidelines. Colonoscopy needs to start at age 50 with stool for occult blood as appropriate. There is a new test that can test for genetic abnormalities in the stool sample, Cologuard. This would not replace a colonoscopy but could be used as a screening tool for patients who do not want a colonoscopy. We discussed the importance of early detection of colon cancer. 4. Discussed current PSA screening. PSA screening can be done in most patients between age 50 and 65. However early detection of prostate cancer needs to carefully be balanced with complications with treatment. These include incontinence, impotence etc. Each patient should decide if they would like to have this test. 5. Discussed safe driving and no use of smart phone while driving 6. Age-appropriate immunizations were discussed. A tetanus booster is needed every 10 years. Flu vaccine is recommended every year just before the start of the flu season. Shingles vaccine is recommended after age 50 but not all insurances cover it. Pneumonia vaccine is given after age 65 unless there are certain comorbidities for which it is started earlier. 7. Diagnostic labs were discussed. These could include/not limited to CBC CMP and lipids with fasting blood glucose and insulin levels. Vitamin D and hemoglobin A1c testing might be appropriate. All questions answered to patients' satisfaction. Patient verbalized understanding of diagnosis and treatments explained. To call sooner prior to the next visit if any questions/concerns arise. Case discussed with collaborating physician Cooper Arevalo who reviewed the assessment and plan. Chart, medications, labs, vital signs reviewed. Dictation was accomplished with the use of [employer] voice recognition software, prone to medical misidentifications and grammatical errors. This is unintentional and the practitioner does try to identify and correct these, but some could still be present. Please do not hesitate to contact the practitioner for clarification. 08/30/2024 Muscle spasm (ICD-10 - M62.838) Pleasant 43-year-old male who presents the office for an urgent care visit with 2 weeks of a migraine, with vision changes, hearing changes, brain fog, and aura. Patient states that he has a history of migraines approximately 8 to 10 years ago for which he had an MRI with an incidental finding of a cyst. Unable to confirm this with the record. Because of patient's history, will repeat MRI without contrast of the brain secondary to headaches. Also continue to encourage anti-inflammatories/ Tylenol/Excedrin Migraine as well as rest. Provided with work note for today 08/30/24. Because of patient's history of hypertension, avoiding sumatriptan, and provided samples of Nurtec. Discussed proper use, side effects. Will send prescription as needed. Patient will call if needed a prescription/without relief for alternative options. Patient does also admit to some neck discomfort that has been going on for years now, for which she is hesitant to take the cyclobenzaprine, but will try as needed. Differential diagnosis including migraine, tension headache, less likely temporal arteritis secondary to lack of pain on physical exam. Herpes zoster also on differential although less likely secondary to lack of skin manifestations.Also consider space-occupying lesion secondary to symptoms/history of questionable cyst on MRI. Did discuss extensively emergency department criteria/criteria to call the office. Offered follow-up next week, but patient states he will call as needed. Discussed conservative treatments, MRI of the brain without contrast, and Nurtec in the meantime. Chronic: # Diarrhea/cramping post food, start with dicyclomine, if continued symptoms consider imaging. Has had a colonoscopy which was negative. #Hypertension: Continue with losartan 25 mg, doing well. Educated on signs and symptoms associated with hypertension as well as hypotension. Educated on lifestyle modifications such as a low sodium diet, reducing alcohol and caffeine consumption and limiting stress to manage bp.Doing well on losartan. We will continue that medication and increase as needed.Patient educated to take blood pressure at home. #Ankylosing spondylitis:Continui ng to follow with rheumatology. Stopped Inflectra, has been taking Remicade. Follows with arthritis treatment center. Educated on theracimin vs curcumin for joint pain. Patient occasionally uses CBD oil. Patient has frequent acute URI's most likely due to immunosuppression from Remicade. Recent CBC wnl. Patient educated on side effects of Remicade. #muscle tightness and right lateral epicondylitis Patient has muscle tightness in right arm and b/l latissimus dorsi. Plan to continue cyclobenzaprine 5 mg PRN. Patient has been seen by [facility] for arm pain, has received cortisone injections in the past with good relief, however would not like to be referred back at this time and controlling with PT exercises and OTC topical analgesics PRN. #Hypogonadism: patient follows with urology, Dr. Roland in [place] on testosterone 100 mg. Patient aware of risks/benefits and side effects of medication. #screenings and vaccinations: Patient does not wish to received flu or covid vaccinations, patient is eligible for early administration of pneumococcal vaccination due to immunosuppresion with Remicade, patient aware and wishes to obtain. Patient has received colonscopy due to diarrheal symptoms along with positive HLA-B27 with high suspicion for UC/crohns however did not find UC/crohns, patient is UTD on all other screenings. #labwork: CBC, CMP both wnl, lipid panel wnl, except for LDL to 103, discussed lifestyle modifications, plan to recheck in 6 months All quetsions answered to patients satisfaction. Patient verbalized understanding of diagnosis and treatments explained. To call sooner prior to next visit it any questions/concerns arise. Case discussed with collaborating physician Cooper Arevalo who reviewed the assessment and plan. Chart, medications, labs, vital signs reviewed. Dictation was accomplished with the use of [employer] voice recognition software, prone to medical misidentifications and grammatical errors. This is unintentional and the practitioner does try to identify and correct these, but some could still be present. Please do not hesitate to contact practitioner for clarification. 07/14/2024 Acute cough (ICD-10 - R05.1) # Will obtain pneumonia at local pharmacy secondary to history of immunosuppression as recommended by rheumatology, otherwise declines all vaccines. #Acute URI: Patient presents with cold symptoms lasting 3 days, states that consistently sick, is on an immunosuppresive drug infliximab. Patient states that he has had congestion, sore throat, cough along with diarrhea. Patient receieved Respiratory PCR panel and was positive for flu, however out of antiviral treatment window. Patient educated on supportive care with rest and hydration and tylenol for pain/fever reduction. Patient states would not like medication for cough suppression at this time. Patient had diarrhea prior to upper respiratory symptoms states this is common for him and has tried immodium in the past. Plan to trial dicyclomine for diarrhea That he has been experiencing over the past 4 to 5 months, that I believe is unrelated to the flu. Chronic: # Diarrhea/cramping post food, start with dicyclomine, if continued symptoms consider imaging. Has had a colonoscopy which was negative. #Hypertension: Continue with losartan 25 mg, doing well. Educated on signs and symptoms associated with hypertension as well as hypotension. Educated on lifestyle modifications such as a low sodium diet, reducing alcohol and caffeine consumption and limiting stress to manage bp.Doing well on losartan. We will continue that medication and increase as needed.Patient educated to take blood pressure at home. #Ankylosing spondylitis:Continui ng to follow with rheumatology. Stopped Inflectra, has been taking Remicade. Follows with arthritis treatment center. Educated on theracimin vs curcumin for joint pain. Patient occasionally uses CBD oil. Patient has frequent acute URI's most likely due to immunosuppression from Remicade. Recent CBC wnl. Patient educated on side effects of Remicade. #muscle tightness and right lateral epicondylitis Patient has muscle tightness in right arm and b/l latissimus dorsi. Plan to continue cyclobenzaprine 5 mg PRN. Patient has been seen by [facility] for arm pain, has received cortisone injections in the past with good relief, however would not like to be referred back at this time and controlling with PT exercises and OTC topical analgesics PRN. #Hypogonadism: patient follows with urology, Dr. Roland in [place] on testosterone 100 mg. Patient aware of risks/benefits and side effects of medication. #screenings and vaccinations: Patient does not wish to received flu or covid vaccinations, patient is eligible for early administration of pneumococcal vaccination due to immunosuppresion with Remicade, patient aware and wishes to obtain. Patient has received colonscopy due to diarrheal symptoms along with positive HLA-B27 with high suspicion for UC/crohns however did not find UC/crohns, patient is UTD on all other screenings. #labwork: CBC, CMP both wnl, lipid panel wnl, except for LDL to 103, discussed lifestyle modifications, plan to recheck in 6 months Plan to follow up in 6 months and review blood work or sooner if needed. Patient seen and examined. Comprehensive discussion was done on the following. 1. Nutrition: It is important to follow a healthy diet based on lots of vegetables and legumes and good fat. Avoid processed food and processed carbohydrates. Prepare your own meals. Read labels and avoid high fructose corn syrup, processed chemicals added to increase shelf life and preprepared meals. Avoid fast foods. Eat slowly and plan meals for a week. Try to count calories and be mindful of daily calorie intake. Get into the habit of keeping an eye on your weight by using an appropriate scale. Learn to log exercise and discussed fitness Apps like [employer] which can help keep log off calories taken versus calories burned. Local food should be preferred. Discussed Dirty Dozen Versus Clean Fifteen. Discussed healthy supplements like fish oil, Tumeric, Curcumin, Melatonin, Resveratrol, Probiotics, Vitamin-D, Alpha-Lipoic acid, Vitamin-D and coconut oil. 2. It is important to exercise regularly. Is a good habit to walk at least 30 minutes a day. Gentle weightlifting with standard precautions to protect the back. Finding activity like cycling or hiking and get into the habit of engaging in it. Stretching before and after the exercises important. It is also important to contact me if there are any problems like shortness of breath, chest pain, back pain and joint or muscle pain associated with the exercise. 3. Discussed age appropriate screening guidelines. Colonoscopy needs to start at age 50 with stool for occult blood as appropriate. There is a new test that can test for genetic abnormalities in the stool sample, Cologuard. This would not replace a colonoscopy but could be used as a screening tool for patients who do not want a colonoscopy. We discussed the importance of early detection of colon cancer. 4. Discussed current PSA screening. PSA screening can be done in most patients between age 50 and 65. However early detection of prostate cancer needs to carefully be balanced with complications with treatment. These include incontinence, impotence etc. Each patient should decide if they would like to have this test. 5. Discussed safe driving and no use of smart phone while driving 6. Age-appropriate immunizations were discussed. A tetanus booster is needed every 10 years. Flu vaccine is recommended every year just before the start of the flu season. Shingles vaccine is recommended after age 50 but not all insurances cover it. Pneumonia vaccine is given after age 65 unless there are certain comorbidities for which it is started earlier. 7. Diagnostic labs were discussed. These could include/not limited to CBC CMP and lipids with fasting blood glucose and insulin levels. Vitamin D and hemoglobin A1c testing might be appropriate. All questions answered to patients' satisfaction. Patient verbalized understanding of diagnosis and treatments explained. To call sooner prior to the next visit if any questions/concerns arise. Case discussed with collaborating physician Cooper Arevalo who reviewed the assessment and plan. Chart, medications, labs, vital signs reviewed. Dictation was accomplished with the use of [employer] voice recognition software, prone to medical misidentifications and grammatical errors. This is unintentional and the practitioner does try to identify and correct these, but some could still be present. Please do not hesitate to contact the practitioner for clarification. 08/30/2024 Hyperlipidemia, unspecified hyperlipidemia type (ICD-10 - E78.5) Pleasant 43-year-old male who presents the office for an urgent care visit with 2 weeks of a migraine, with vision changes, hearing changes, brain fog, and aura. Patient states that he has a history of migraines approximately 8 to 10 years ago for which he had an MRI with an incidental finding of a cyst. Unable to confirm this with the record. Because of patient's history, will repeat MRI without contrast of the brain secondary to headaches. Also continue to encourage anti-inflammatories/ Tylenol/Excedrin Migraine as well as rest. Provided with work note for today 08/30/24. Because of patient's history of hypertension, avoiding sumatriptan, and provided samples of Nurtec. Discussed proper use, side effects. Will send prescription as needed. Patient will call if needed a prescription/without relief for alternative options. Patient does also admit to some neck discomfort that has been going on for years now, for which she is hesitant to take the cyclobenzaprine, but will try as needed. Differential diagnosis including migraine, tension headache, less likely temporal arteritis secondary to lack of pain on physical exam. Herpes zoster also on differential although less likely secondary to lack of skin manifestations.Also consider space-occupying lesion secondary to symptoms/history of questionable cyst on MRI. Did discuss extensively emergency department criteria/criteria to call the office. Offered follow-up next week, but patient states he will call as needed. Discussed conservative treatments, MRI of the brain without contrast, and [facility] in the [facility]. Chronic: # Diarrhea/cramping post food, start with dicyclomine, if continued symptoms consider imaging. Has had a colonoscopy which was negative. #Hypertension: Continue with losartan 25 mg, doing well. Educated on signs and symptoms associated with hypertension as well as hypotension. Educated on lifestyle modifications such as a low sodium diet, reducing alcohol and caffeine consumption and limiting stress to manage bp.Doing well on losartan. We will continue that medication and increase as needed.Patient educated to take blood pressure at home. #Ankylosing spondylitis:Continui ng to follow with rheumatology. Stopped Inflectra, has been taking Remicade. Follows with arthritis treatment center. Educated on theracimin vs curcumin for joint pain. Patient occasionally uses CBD oil. Patient has frequent acute URI's most likely due to immunosuppression from Remicade. Recent CBC wnl. Patient educated on side effects of Remicade. #muscle tightness and right lateral epicondylitis Patient has muscle tightness in right arm and b/l latissimus dorsi. Plan to continue cyclobenzaprine 5 mg PRN. Patient has been seen by [facility] for arm pain, has received cortisone injections in the past with good relief, however would not like to be referred back at this time and controlling with PT exercises and OTC topical analgesics PRN. #Hypogonadism: patient follows with urology, Dr. Roland in [place] on testosterone 100 mg. Patient aware of risks/benefits and side effects of medication. #screenings and vaccinations: Patient does not wish to received flu or covid vaccinations, patient is eligible for early administration of pneumococcal vaccination due to immunosuppresion with Remicade, patient aware and wishes to obtain. Patient has received colonscopy due to diarrheal symptoms along with positive HLA-B27 with high suspicion for UC/crohns however did not find UC/crohns, patient is UTD on all other screenings. #labwork: CBC, CMP both wnl, lipid panel wnl, except for LDL to 103, discussed lifestyle modifications, plan to recheck in 6 months All quetsions answered to patients satisfaction. Patient verbalized understanding of diagnosis and treatments explained. To call sooner prior to next visit it any questions/concerns arise. Case discussed with collaborating physician Cooper Arevalo who reviewed the assessment and plan. Chart, medications, labs, vital signs reviewed. Dictation was accomplished with the use of [employer] voice recognition software, prone to medical misidentifications and grammatical errors. This is unintentional and the practitioner does try to identify and correct these, but some could still be present. Please do not hesitate to contact practitioner for clarification. Plan Of Treatment Pending Test Test Name Order Date X ray : Chest with 2 views 06/03/2024 Mycoplasma pneu. IgG/IgM Abs 06/03/2024 MRI : Brain without Contrast 08/30/2024 XR Chest 2 Views 03/16/2024 LIPID PANEL, STANDARD 07/14/2024 LIPID PANEL, STANDARD 03/16/2024 LIPID PANEL, STANDARD 09/12/2022 COMPREHENSIVE METABOLIC PANEL 03/16/2024 COMPREHENSIVE METABOLIC PANEL 09/12/2022 CBC (INCLUDES DIFF/PLT) 09/12/2022 CBC (INCLUDES DIFF/PLT) 03/16/2024 CBC (INCLUDES DIFF/PLT) 06/03/2024 URINALYSIS, COMPLETE 03/16/2024 URINALYSIS, COMPLETE 09/12/2022 HEMOGLOBIN A1c 09/12/2022 HEMOGLOBIN A1c 03/16/2024 TSH 09/12/2022 Next Appt Details Provider Name:ROBIN SEALS, 01/11/2025 11:00:00 AM, [address], [place], [id number], Insurance Providers Payer Name Payer Address Payer Phone Subscriber Number Group Number Insured Name Patient Relationship to Insured Coverage Start Date Coverage End Date [employer] [address] [place] [address] [id number]EWART Self - patient is the insured 4 Medical (General) History Medical History History ICD Code Left tennis elbow Hypertension, essential I10 Ankylosing spondylitis of lumbosacral re gion M45.7 Hypogonadism in male E29.1 Migraine syndrome G43.909 Surgical History Surgery Date(Month/Year) ACL reconstruction Inguinal hernia
--- OUTSIDE RECORDS SUMMARY | 2024-12-07 09:47 | XMS_ITS | Clinical Summary ---
Author Organization [facility] Address [address] [place] [address] Care Team Providers Care Erp Consultant Name Role Phone Slim Villanueva MD Primary Care Provider Allergies No known active allergies Medications REMICADE 100 mg injection 08/09/19 20 Active testosterone cypionate (DEPOTESTOTERO NE CYPIONATE) 200 mg/mL injection INJECT 1 ML (200MG DOSE) INTRAMUSCULARLY ONCE EVERY 2 WEEKS 07/22/19 20 Active BD LUER-JOSE RAUL SYRINGE 3 mL 22 x 1 1/2 syrg 06/21/19 20 Active Immunizations Name Administration Dates Next Due Flublok Trivalent Prefilled Syringe (18+ years) 05/19/2019 Social History Tobacco Use Types Packs/Day Years Used Date Smoking Tobacco: Never Smokeless Tobacco: Never Sex and Gender Information Value Date Recorded Sex Assigned at Not on file Legal Sex Male 10:03 AM EST Gender Identity Not on file Sexual Orientation Not on file Last Filed Vital Signs Vital Sign Reading Time Taken Comments Blood Pressure 136/78 08/19/2019 11:52 AM EDT Pulse 69 08/19/2019 11:52 AM EDT Temperature 36 C (96.8 F) 08/19/2019 11:52 AM EDT Respiratory Rate 14 08/19/2019 11:52 AM EDT Oxygen Saturation 98% 08/19/2019 11:52 AM EDT Inhaled Oxygen Concentration - - Weight 80.3 kg (177 lb) 08/19/2019 11:52 AM EDT Height 182.9 cm (6') 08/19/2019 11:52 AM EDT Body Mass Index 24.01 08/19/2019 11:52 AM EDT Plan of Treatment Health Maintenance Due Date Last Done Comments Depression: Screening Annual ly using PHQ-2/9 in Adults 18 yrs or above (or HM Modifier)([facility]) 1998 Hepatitis C Virus Infection in Adolescents and Adults: Screening (or Modifier) ([facility]) 1998 [facility] Screening Reminder: Kayla esparza for all adults ([facility]) 1998 Tobacco Smoking Cessation: i n Adults excluding Women: Behavioral and Pharmacotherapy Interventions ([facility]) 1998 DTaP/Tdap/Td Vaccines ([facility]) (1 - Tdap) 10/18/1999 COVID-19 Vaccine Screening: Initial Series and Booster Status ([facility]) ( - 2023- season) 2024 Flu Vaccination: Yearly for ages 18mos through 64 years (or Modifier)([facility]) 12/30/2024 05/19/2019 Zoster/Shingles Vaccine Seri es Screening: Adults aged 18+ yrs (or HM Modifiers)([facility]) (1 of 2) 2030 Pneumococcal Vaccination Scr eening: Pts 0-19 & 19-49 yrs of age ([facility]) Aged Out No longer eligible b ased on patient's age to complete this topic Medical Devices Not on file Insurance [facility] [place] [place] [id number] Care Teams Erp Consultant Relationship Specialty Start Date End Date Slim Villanueva MD [address] [place] [phone] PCP - Head Of Digital Advertising & Integration 08/19/19
== END 2024-12-07 10:23 | disposition home or self-care (01) ==
LOC: HO.HUSH 09:26
PROVIDERS: PCP Internal Medicine; Visit Provider Urology
DX: E29.1 Testicular hypofunction (principal)
CPT/HCPCS: 99213